=== PATIENT | female | born 1955 | race Caucasian/White ===

== ENCOUNTER 2020-05-18 17:12 | Inpatient (IN) | payer OTHER ==
[~2020-05-18] VITALS: Ht 167.6 cm; Wt 100.9 kg
[~2020-05-18 17:12] MED LIST: ACET325 PO; BENADRYL25 MG PO; CARI350 PO; CELE200 PO; CLOZ100 PO; CLOZAPINE PO; DIAZ2 PO; DIVA500ER PO; HYDACE5 PO; IBUP600 PO; NAPR500 PO; ONDA4ODT SL; Oxycodone-Apap1 EAC3 PO; Percocet 5-3251 EACH PO; Senna Concentr8.6 MG PO; Senna Laxative8.6 MG PO; Senna8.6 M1 PO; XARELTO20 MG PO
[2020-05-18 17:54] LABS: PCO2 Arterial 54.1 mmHg (35-45); PO2 Arterial 100 mmHg (80-100)
[2020-05-18 18:25] LABS: BASOPHILS ABSOLUTE AUTO 0.02 K/mm3 (0.00-0.23); BASOPHILS PERCENT AUTO 0 % (0-2); EOSINOPHILS ABSOLUTE AUTO 0.02 K/mm3 (0.00-0.68); EOSINOPHILS PERCENT AUTO 0 % (0-6); Hematocrit 40.1 % (33.0-51.0); Hemoglobin 12.2 g/dL (11.5-16.0); IMMATURE GRAN ABSOLUTE AUTO 0.03 K/mm3 (0.00-0.10); IMMATURE GRAN PERCENT AUTO 0 % (0-1); LYMPHOCYTES ABSOLUTE AUTO 0.83 K/mm3 (0.84-5.20); LYMPHOCYTES PERCENT AUTO 9 % (21-46); MONOCYTES ABSOLUTE AUTO 0.45 K/mm3 (0.16-1.47); MONOCYTES PERCENT AUTO 5 % (4-13); Mean Corpuscular HGB Conc 30.4 g/dL (31.5-36.5); Mean Corpuscular Volume 99 fL (80-100); Mean Platelet Volume 11.8 fL (9.1-12.4); NEUTROPHILS ABSOLUTE AUTO 8.24 K/mm3 (1.96-9.15); NEUTROPHILS PERCENT AUTO 86 % (41-73); Platelet Count 141 K/mm3 (150-400); RDW Coefficient Variation 12.7 % (11.7-14.2); RDW Standard Deviation 46.1 fL (35.1-46.3); Red Blood Cell Count 4.07 M/mm3 (3.80-5.20); White Blood Cell Count 9.59 K/mm3 (4.00-11.30)
[2020-05-18 18:49] LABS: Alanine Aminotransfer (ALT/SGP 13 U/L (12-78); Albumin, Blood 3.5 g/dL (3.4-5.0); Alk Phos 87 U/L (50-136); Anion Gap 7 mmol/L (6-16); Aspartate Aminotrans (AST/SGOT 22 U/L (12-37); Bilirubin, Total 0.4 mg/dL (0.1-1.0); Blood Urea Nitrogen 16 mg/dL (8-24); Bun/Creatinine Ratio 24.9 (12.0-20.0); CO2, Blood 31 mmol/L (21-32); Calcium, Blood 8.5 mg/dL (8.5-10.1); Chloride, Blood 103 mmol/L (98-108); Creatinine, Blood 0.64 mg/dL (0.40-1.00); Globulin, Blood 3.4 g/dL (2.2-4.0); Glomerular Filtration Rate >60 (60-); Glucose, Blood 115 mg/dL (70-99); Sodium, Blood 141 mmol/L (136-145); Total Protein, Blood 6.9 g/dL (6.4-8.2); Troponin I <0.015 ng/mL (0.000-0.040)
--- NOTE | 2020-05-19 04:10 | NUR ---
SHIFT SUMMARY ADMITTED FROM ER THIS SHIFT FOR BILATERAL PNEUMONIA/HYPOXIA. COVID POSITIVE. FULL CODE. PT WAS TITRATED UP TO 4 LPM O2 THIS SHIFT FOR DESATURATION. WE'VE BEEN USING THE BSC DUE TO CONFUSION. 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 REMDESIVIR, SOLUMEDROL ARE SCHEDULED. BLOOD CULTURES HAVE BEEN SENT. SHE IS CONFUSED, REMOVING HER OXYGEN AT TIMES.
[2020-05-19 05:45] LABS: BASOPHILS ABSOLUTE AUTO 0.02 K/mm3 (0.00-0.23); BASOPHILS PERCENT AUTO 0 % (0-2); EOSINOPHILS PERCENT AUTO 0 % (0-6); Hematocrit 38.1 % (33.0-51.0); Hemoglobin 11.6 g/dL (11.5-16.0); IMMATURE GRAN ABSOLUTE AUTO 0.06 K/mm3 (0.00-0.10); IMMATURE GRAN PERCENT AUTO 1 % (0-1); LYMPHOCYTES PERCENT AUTO 5 % (21-46); MONOCYTES ABSOLUTE AUTO 0.23 K/mm3 (0.16-1.47); MONOCYTES PERCENT AUTO 3 % (4-13); Mean Corpuscular HGB 29.7 pg (26.0-34.0); Mean Corpuscular HGB Conc 30.4 g/dL (31.5-36.5); Mean Corpuscular Volume 98 fL (80-100); Mean Platelet Volume 12.1 fL (9.1-12.4); NEUTROPHILS ABSOLUTE AUTO 8.11 K/mm3 (1.96-9.15); NEUTROPHILS PERCENT AUTO 92 % (41-73); Platelet Count 125 K/mm3 (150-400); RDW Coefficient Variation 12.6 % (11.7-14.2); RDW Standard Deviation 45.1 fL (35.1-46.3); White Blood Cell Count 8.82 K/mm3 (4.00-11.30)
[2020-05-19 06:03] LABS: Alanine Aminotransfer (ALT/SGP 13 U/L (12-78); Albumin, Blood 2.7 g/dL (3.4-5.0); Albumin/Globulin Ratio 0.8 (0.8-1.8); Alk Phos 81 U/L (50-136); Anion Gap 3 mmol/L (6-16); Aspartate Aminotrans (AST/SGOT 20 U/L (12-37); Bilirubin, Total 0.3 mg/dL (0.1-1.0); Blood Urea Nitrogen 16 mg/dL (8-24); Bun/Creatinine Ratio 29.7 (12.0-20.0); CO2, Blood 34 mmol/L (21-32); Calcium, Blood 8.3 mg/dL (8.5-10.1); Chloride, Blood 106 mmol/L (98-108); Creatinine, Blood 0.54 mg/dL (0.40-1.00); Globulin, Blood 3.4 g/dL (2.2-4.0); Glomerular Filtration Rate >60 (60-); Glucose, Blood 199 mg/dL (70-99); Potassium, Blood 4.6 mmol/L (3.5-5.5); Sodium, Blood 143 mmol/L (136-145); Total Protein, Blood 6.1 g/dL (6.4-8.2)
[2020-05-19 07:01] LABS: Adenovirus Not Detected (NOT DETECT); Bordetella pertussis Not Detected (NOT DETECT); Chlamydophila pneumoniae Not Detected (NOT DETECT); Coronavirus 229E Not Detected (NOT DETECT); Coronavirus HKU1 Not Detected (NOT DETECT); Coronavirus NL63 Not Detected (NOT DETECT); Coronavirus OC43 Not Detected (NOT DETECT); Human Metapneumovirus Not Detected (NOT DETECT); Human Rhinovirus/Enterovirus Not Detected (NOT DETECT); Influenza A/2009-H1 Not Detected (NOT DETECT); Influenza A/H1 Not Detected (NOT DETECT); Influenza A/H3 Not Detected (NOT DETECT); Influenza B Not Detected (NOT DETECT); Mycoplasma pneumoniae Not Detected (NOT DETECT); Parainfluenza Virus 1 Not Detected (NOT DETECT); Parainfluenza Virus 2 Not Detected (NOT DETECT); Parainfluenza Virus 3 Not Detected (NOT DETECT); Parainfluenza Virus 4 Not Detected (NOT DETECT); Respiratory Syncytial Virus Not Detected (NOT DETECT); SARS-Cov-2 (COVID-19), BioFire Detected (NOT DETECT)
--- NOTE | 2020-05-19 17:29 | NUR ---
PT RESTING IN BED AFTER MEDICATION ADMIN AND BATHROOM ASSISTANCE. PT VERY WEAK AND HAS MILD SOB WHEN AMBULATING WITH ONE ASSIST AND GATE BELT. DENIES CP. PT COUGH TREATED PER EMAR AND HELPING. LINE WNL AND FLUSHED. PT REMAINS PARANOID ABOUT HER CARE AND CAREGIVER INTENT, ALTHOUGH COOPERATIVE AND MED COMPLAINT. STAFF WILL CONT TO MONITOR.
--- NOTE | 2020-05-20 04:37 | NUR ---
DINING SERVICE SUPERVISOR SUMMARY NO ACUTE CHANGES THIS SHIFT. PT AAOX2-3, CAN BE VERY CONFUSED AT TIMES AND SPEAK NONSENSICALLY. VERY PARANOID AND CONSTANTLY ASKING WHAT YOU ARE DOING AND WHY. CAN MAKE MOST NEEDS KNOWN AND CAN ANSWER MOST YES/NO QUESTIONS EASILY. STANDBY ASSIST TO THE BSC. REMAINS ON 4L O2 VIA NC. PT OCCASIONALLY REMOVED O2 AND SATS DROP DOWN TO MID 80'S ON RA. VSS, WILL CONTINUE TO MONITOR.
--- NOTE | 2020-05-20 17:56 | NUR ---
SHIFT SUMMARY PT AxOx3-4 WITH INTERMITTENT CONFUSION/FORGETFULNESS. PT HAS HX OF SCHIZOPHRENIA AND VERBALIZES UNDERSTANDING THAT SHE IS CONFUSED AND/OR SEDATED SOMETIMES. SBA TO BSC. PT GAIT IMPROVEMENT NOTED T/O THE DAY. FREQUENT AND URGENT URINATION NOTED. PT STATES THIS IS NORMAL, AND HER DR TOLD HER IT JUST HAPPENS TO SOME WOMEN WHEN THEY GET OLDER. DENIES PAIN OR BURNING WITH URINATION. PT O2 WEANED FROM 4L TO 2LPM. C/O HACKING COUGH T/O DAY. MEDICATED PER EMAR WITH LITTLE RELIEF. PT UNABLE TO COUGH UP SPUTUM SAMPLE FOR LAB COLLECTION. IV DC'D DUE TO LEAKING. ATTEMPTING TO PLACE NEW IV BEFORE SHIFT CHANGE. VITALS REVIEWED. PT CURRENTLY RESTING IN BED WITH CALL LIGHT IN REACH.
--- NOTE | 2020-05-21 06:19 | NUR ---
MATHEMATICAL STATISTICIAN SUMMARY NO ACUTE CHANGES THIS SHIFT. PT AAOX2, MORE CONFUSED AT NIGHT IT SEEMS. PT UP TO BSC OFTEN WHILE AWAKE. REMAINS ON 2L O2 VIA NC AND HAS MAINTAINED O2 SATS THROUGH THE NIGHT. LUNGS REMAIN COARSE. VSS, WILL CONTINUE TO MONITOR.
--- NOTE | 2020-05-21 16:56 | NUR ---
SHIFT SUMMARY PT AxOx3-4 WITH INTERMITTENT CONFUSION. PT IS ABLE TO MAKE NEEDS KNOWN. USES CALL LIGHT FREQUENTLY, YET APPROPRIATELY. GENERAL STRENGTH IMPROVEMENT NOTED COMPARED TO YESTERDAY. PT IS GETTING UP TO USE BSC WITH SBA. ABLE TO MANAGE O2 & BIOX LINES WITHOUT DIFFICULTY. O2 DECREASED TO 1.5L THIS AM WITH SATS AT 92%. PT/OT ORDERED FOR EVAL. OT WORKED WITH PATIENT TODAY. TELEMETRY DC'D. PER SPRAY BOOTH OPERATOR, TELE READS NSR @95 PRIOR TO DC. PT DID NOT NEED/REQUEST ANY VALIUM FOR ANXIETY OR COUGH MEDS TODAY. PT STATES SHE IS FEELING BETTER EACH DAY. PER DR GOLDEN, PLAN IS TO FINISH DAY 5 OF REMDESIVIR AND SWITCH TO PO STEROIDS TOMORROW, THEN WILL DISCUSS DC PLANS. PT VITALS REVIEWED. PT CURRENTLY RESTING IN BED WITH CALL LIGHT IN REACH. DENIES ANY NEEDS AT THIS TIME.
--- NOTE | 2020-05-21 23:37 | NUR ---
CONT BIOX/O2 NEEDS AT 2315 PTS CONT BIOX WAS ALARMING, SPO2 @86/87% ON 1.5L O2. PT IS SOUND ASLEEP & DOES NOT WAKE TO ALARMS OR NURSE IN RM. CHANGED FINGER BIOX STICKER, & INCREASED O2 TO 4L, SPO2 @90%. PT RESTING COMFORTABLY & IN NO APPERENT DISTRESS. WILL MONITOR SPO2 & TITRATE O2 PRN.
--- NOTE | 2020-05-22 01:32 | NUR ---
INCREASED O2 NEEDS CONT PULSE ALARMING @0055, WENT INTO RM & SPO2 @84% ON 4L, INCREASED O2 TO 6L, PT CONT BIOX STILL 80-85%. RR 28-30, HAS LABOURED BREATHING c ACCESSSORY MUSCLE USE, LUNGS DIM c FINE EXP WHEEZES IN UPPER LOBES & DIM BASES, DRY/WET NONPRODUCTIVE WEAK COUGH. CHANGED PULSE OX STICKER TO TOE & CHANGED PT TO OXIMIZER ON 9L O2, SPO2 90-92%. INFORMED RT FELIPE Ba OF PT INCREASED O2 NEEDS. RT CAME TO RM & GAVE PT BREATHING TX, PLACED ON HIGH FLOW NC @7L c HUMIDIFIED AIR. THIS NURSE & NORMA Ba ASSISTED PT TO LYING PRONE. AFTER REPOSITIONING PT RT WAS ABLE TO TITRATE O2 DOWN 5L c SPO2 @90-92%. WILL CONT TO MONITOR PT & TITRATE O2 PRN. HIGH FLOW NC.
--- NOTE | 2020-05-22 04:14 | NUR ---
SHIFT SUMMARY AOX3, FORGETFUL/CONFUSED @TIMES. FLIGHT OF IDEAS & NONSENSICAL SPEECH. HX SCHIZOPHRENIA. SPO2 DROPPED TO 80-86% WHILE PT SOUND ASLEEP & ON 4L O2, RR INCREASED & PT REPORTED FEELING SOB WHEN WOKEN UP @THIS TIME WELL, READ PREVIOUS NOTES. PT CURRENTLY RESTING COMFORTABLY LYING PRONE, ON 4L HUMIDIFIED O2 c SPO2 90-92%. REST OF VITALS STABLE. LUNGS SOUND DIM c FINE EXP WHEEZES IN UPPER LOBES. HAS NONPRODUCTIVE WEAK COUGH. REPORTED PAIN IN RIBS/LUNGS c COUGHING, GAVE TYLENOL & TESSELON PERELS PT STATED RELIEF FROM PAIN. WHILE AWAKE PT UP TO BSC FREQUENTLY TO "URINATE" SOMETIMES PT UNABLE TO VOID. DENIES N/V. CALL LIGHT IN REACH & PT ABLE TO MAKE NEEDS KNOWN. WILL MONITOR UNTIL DAY NURSE ASSUMES CARE.
--- NOTE | 2020-05-22 16:20 | NUR ---
SHIFT SUMMARY PT CONFUSED AT TIMES; HAS FLIGHT OF IDEAS AT TIMES. PT C/0 COUGH AND RIBS PAIN- MEDICATED PER EMAR. ALSO MEDICATED THE PT FOR ANXIETY THIS AFTERNOON. PT DESAT TO 80S THIS AM; CALLED THE RT AND INCREASED THE O2 TO 9LPM ; PT MAINTAINED SATS ABOVE 90S. SLOWLY WEENED THE PT O2 PER . PT IS NOW ON 4-5 L DURING RESTING. MAINTAINING LOW 90S AND PT ON PRONE POSITION . PT WORKED WITH PT TODAY. BED IS IN THE LOWEST POSITION AND CALL LIGHT WITHIN REACH.
--- NOTE | 2020-05-23 02:38 | NUR ---
REPORT GIVEN TO HUY BARRY
--- NOTE | 2020-05-23 04:48 | NUR ---
KEYCASE ASSEMBLER SUMMARY PT A&OX4, ABLE TO MAKE NEEDS KNOWN, FORGETFUL AT TIMES. PATIENT PLEASANT AND COOPERATIVE TO CARE. PT MEDICATED FOR PAIN PER EMAR, NO C/O CP, SOB, OR N&V. PT ON 4LPM VIA NC, SPO2 90-95%. OCCASSIONAL NON PRODUCTIVE COUGH NOTED. PT CALM AND RESTED IN BED T/O SHIFT. SBA TO BSC. BED AT LOWEST POSITION. CALL LIGHT WITHIN REACH.
--- NOTE | 2020-05-23 16:21 | NUR ---
SHIFT SUMMARY PT IS AOX4; CONFUSED AT TIMES. PT WORKED WITH RT THIS AM- SEE RT NOTE EVAL. PT IS ON 3-4 L OF O2; SATS ABOVE LOW 90S. PT DYSPNEA ON EXERTION. PT USES BSC; VSS. NO OTHER ACUTE CHANGES THIS SHIFT. BED IS IN THE LOWEST POSITION AND CALL LIGHT WITHIN REACH.
--- NOTE | 2020-05-24 04:10 | NUR ---
COUNT ROOM CLERK SUMMARY PT A&OX4, ABLE TO MAKE NEEDS KNOWN. PLEASANT AND COOPERATIVE TO CARE. NO C/O PAIN OR ANY DISCOMFORT. NO C/O CP OR N&V. SOB WITH EXERTION NOTED. PT ON 3LPM O2 VIA NC, SPO2 90-93%, OCCASSIONAL NON-PRODUCTIVE COUGH NOTED. PT CALM AND RESTED IN BED T/O SHIFT. 1P SBA TO BSC. BED AT LOWEST POSITION. CALL LIGHT WITHIN REACH.
--- NOTE | 2020-05-24 09:41 | NUR ---
THE NURSE IS TAKING OVER CARE FORN Pt IN 307.
[2020-05-24] MEDS ORDERED: BENZ100A PO (11:15)
[2020-05-24] MEDS ORDERED: DEXA2 PO (11:17)
[2020-05-24] MEDS ORDERED: Q-Tussin100 MG/5 M PO (11:27)
--- NOTE | 2020-05-24 17:10 | NUR ---
PT DISCHARGED TO HOME VIA WC TO [facility] AT 1700. IV DCD. PT EDUCATED ABOUT NEW MEDICATIONS AND FAXED TO [facility]. IV DCD. PT ALSO GIVEN PACKET INFORMATIONS ABOUT COVID. EDUCATED ABOUT THE PREVENTION OF SPREAD. PT GIVEN THE HOME O2 AT 3L [facility]. PT EDUCATED ABOUT CONSERVING ENERGY. PT AWARE TO CALL PCP FOR 1-2 WEEKS APPOINTMENT. PT ANXIOUS AND EDUCATED ABOUT DEEP BREATHING EXERCISES DURING PANIC ATTACK. PT GIVEN ALL MORNING MEDS AND ANXIETY MEDICATIONS THIS MORNING.
== END 2020-05-24 16:47 | disposition home health service (06) | DRG 177 ==
LOC: ER 17:12 → MEDS 19:57 → ENPENDDIS 05-24 12:36 → MEDS 05-24 16:47
PROVIDERS: Physician Assistant; ADMIT Internal Medicine
PROC: XW033E5 Introduction of Remdesivir Anti-infective into Peripheral Vein, Percutaneous Approach, New Technology Group 5 (ICD-10-PCS; principal; 2020-05-18)
PROC: 8E0ZXY6 Isolation (ICD-10-PCS; 2020-05-18)
DX: U07.1 COVID-19 (principal); J12.82 Pneumonia due to coronavirus disease 2019; J96.01 Acute respiratory failure with hypoxia; F20.0 Paranoid schizophrenia; K21.9 Gastro-esophageal reflux disease without esophagitis; E78.5 Hyperlipidemia, unspecified; Z87.11 Personal history of peptic ulcer disease; Z87.891 Personal history of nicotine dependence; Z86.718 Personal history of other venous thrombosis and embolism
CPT/HCPCS: 0202U; 36415; 36600; 71046; 80053; 82803; 83605; 83880; 84145; 84484; 85025; 87040; 93005; 93010; 94640; 94761; 94762; 97116; 97162; 97165; 97530; 99285-25; A9270; J1100; J1650; J2930; J7050

== ENCOUNTER 2020-05-29 16:03 | Inpatient (IN) | payer OTHER ==
[~2020-05-29] VITALS: Ht 175.3 cm; Wt 90.7 kg
[~2020-05-29 16:03] MED LIST changes: +BENZ100A PO; +DEXA2 PO; +Q-Tussin100 MG/5 M PO
[2020-05-29 16:57] LABS: BASOPHILS ABSOLUTE AUTO 0.02 K/mm3 (0.00-0.23); BASOPHILS PERCENT AUTO 0 % (0-2); EOSINOPHILS PERCENT AUTO 0 % (0-6); IMMATURE GRAN ABSOLUTE AUTO 0.16 K/mm3 (0.00-0.10); IMMATURE GRAN PERCENT AUTO 1 % (0-1); LYMPHOCYTES ABSOLUTE AUTO 1.51 K/mm3 (0.84-5.20); LYMPHOCYTES PERCENT AUTO 9 % (21-46); MONOCYTES ABSOLUTE AUTO 1.63 K/mm3 (0.16-1.47); MONOCYTES PERCENT AUTO 9 % (4-13); Mean Corpuscular HGB 29.7 pg (26.0-34.0); Mean Corpuscular HGB Conc 31.1 g/dL (31.5-36.5); Mean Corpuscular Volume 96 fL (80-100); Mean Platelet Volume 12.4 fL (9.1-12.4); NEUTROPHILS ABSOLUTE AUTO 14.03 K/mm3 (1.96-9.15); NEUTROPHILS PERCENT AUTO 81 % (41-73); Platelet Count 224 K/mm3 (150-400); RDW Coefficient Variation 12.9 % (11.7-14.2); RDW Standard Deviation 45.9 fL (35.1-46.3); Red Blood Cell Count 4.71 M/mm3 (3.80-5.20); White Blood Cell Count 17.35 K/mm3 (4.00-11.30)
[2020-05-29 17:11] LABS: Alanine Aminotransfer (ALT/SGP 27 U/L (12-78); Albumin, Blood 3.5 g/dL (3.4-5.0); Albumin/Globulin Ratio 1.1 (0.8-1.8); Alk Phos 66 U/L (50-136); Anion Gap 4 mmol/L (6-16); Aspartate Aminotrans (AST/SGOT 41 U/L (12-37); Bilirubin, Total 0.8 mg/dL (0.1-1.0); Blood Urea Nitrogen 47 mg/dL (8-24); Bun/Creatinine Ratio 68.3 (12.0-20.0); CO2, Blood 30 mmol/L (21-32); Chloride, Blood 112 mmol/L (98-108); Creatinine, Blood 0.69 mg/dL (0.40-1.00); Ethanol (Alcohol), Blood, Med <3 mg/dL; Globulin, Blood 3.3 g/dL (2.2-4.0); Glomerular Filtration Rate >60 (60-); Glucose, Blood 132 mg/dL (70-99); Potassium, Blood 3.9 mmol/L (3.5-5.5); Salicylate <1.7 mg/dL (2.8-20.0); Sodium, Blood 146 mmol/L (136-145); Total Protein, Blood 6.8 g/dL (6.4-8.2)
[2020-05-29 17:13] LABS: Acetaminophen, Random <2.0 ug/mL (10.0-30.0)
[2020-05-29 17:52] LABS: Creatine Kinase MB 7.8 ng/mL (0.0-3.6); Creatine Kinase MB Index 0.9 (0.0-4.0)
[2020-05-29 18:01] LABS: Source, Urine Clean Catch
[2020-05-29 18:06] LABS: Appearance, Urine Clear (Clear); Bilirubin, Urine Neg (Neg); Blood, Urine 1+ (Neg); Color, Urine Yellow (P-Yellow); Glucose Qualitative, Urine Neg (Neg); Ketones, Urine 3+ (Neg); Leukocyte Esterase, Urine 2+ (Neg); Nitrite, Urine Neg (Neg); Protein, Urine 1+ (Neg); Urobilinogen, Urine NORM (Normal)
[2020-05-29 18:17] LABS: U Amphetamine Screen Not Detected; U Barbituate Screen Not Detected; U Benzodiazapine Screen DETECTED; U Buprenorphine Screen Not Detected; U Cannabinoids Screen Not Detected; U Cocaine Screen Not Detected; U Methadone Screen Not Detected; U Methamphetamine Screen Not Detected; U Opiates Screen Not Detected; U Oxycodone Screen Not Detected; U Phencyclidine Screen Not Detected; U Propoxyphene Screen Not Detected
[2020-05-29 18:25] LABS: Red Blood Cells, Urine 0-2 /hpf (0-2)
[2020-05-29 18:26] LABS: Bacteria Mod /hpf; Squamous Epithelial Cells Not Seen /hpf (Few); Triple Phosphate Crystals Few /hpf
[2020-05-29 19:19] LABS: Valproic Acid <3.0 ug/mL (50.0-100.0)
--- NOTE | 2020-05-29 23:56 | NUR ---
report received from HUY Badillo from .
--- NOTE | 2020-05-30 03:45 | NUR ---
Patient alert and cooperative with care. Arrived on floor alert and oriented times two. unaware of circumstances that brought her to hospital the hospital.This RN just told her her son Jarocho came to see her, and she was pretty sick, so he called 911. Patient has been pleasant and cooperative with care since arrival. Jyoti has had a few witness episodes when staff have been walking into room of auditoroy and visual hallucinations. Lung sounds dim in bases but clear. upper airway occasionally loose sounding with SUPPOSITORY MOLDING MACHINE OPERATOR cough that clears area. Patient unsure of Flu shot status, so immunization held for how. Please have son Jarocho Turk at [phone] present when patient informed of spouses .
[2020-05-30 05:26] LABS: BASOPHILS ABSOLUTE AUTO 0.01 K/mm3 (0.00-0.23); BASOPHILS PERCENT AUTO 0 % (0-2); EOSINOPHILS ABSOLUTE AUTO 0.05 K/mm3 (0.00-0.68); EOSINOPHILS PERCENT AUTO 0 % (0-6); Hematocrit 37.4 % (33.0-51.0); Hemoglobin 11.3 g/dL (11.5-16.0); IMMATURE GRAN ABSOLUTE AUTO 0.08 K/mm3 (0.00-0.10); IMMATURE GRAN PERCENT AUTO 1 % (0-1); LYMPHOCYTES ABSOLUTE AUTO 2.18 K/mm3 (0.84-5.20); LYMPHOCYTES PERCENT AUTO 18 % (21-46); MONOCYTES PERCENT AUTO 9 % (4-13); Mean Corpuscular HGB 29.6 pg (26.0-34.0); Mean Corpuscular HGB Conc 30.2 g/dL (31.5-36.5); Mean Corpuscular Volume 98 fL (80-100); Mean Platelet Volume 12.2 fL (9.1-12.4); NEUTROPHILS ABSOLUTE AUTO 8.82 K/mm3 (1.96-9.15); NEUTROPHILS PERCENT AUTO 72 % (41-73); Platelet Count 175 K/mm3 (150-400); RDW Coefficient Variation 13.2 % (11.7-14.2); RDW Standard Deviation 46.9 fL (35.1-46.3); Red Blood Cell Count 3.82 M/mm3 (3.80-5.20); White Blood Cell Count 12.24 K/mm3 (4.00-11.30)
[2020-05-30 05:45] LABS: Anion Gap 5 mmol/L (6-16); Blood Urea Nitrogen 40 mg/dL (8-24); Bun/Creatinine Ratio 73.7 (12.0-20.0); CO2, Blood 28 mmol/L (21-32); Calcium, Blood 7.6 mg/dL (8.5-10.1); Chloride, Blood 114 mmol/L (98-108); Creatinine, Blood 0.54 mg/dL (0.40-1.00); Glomerular Filtration Rate >60 (60-); Glucose, Blood 95 mg/dL (70-99); Potassium, Blood 3.6 mmol/L (3.5-5.5); Sodium, Blood 147 mmol/L (136-145)
--- NOTE | 2020-05-30 17:55 | NUR ---
PATIENT CONTINUES TO BE VERY CONFUSED AND DELUSIONAL THIS SHIFT. HAS BECOME MORE ALERT THE DAY GOES ON, BUT CONVERSATION IS PARANOID AND NONSENSICAL. PT ORDERED BECAUSE PATIENT STATES THAT SHE CANNOT WALK AND USUALLY CRAWLS AROUND HER HOME. LAST ADMISSION 01/22/21, PATIENT WAS INDEPENDENT WITH ADL'S. SPOKE WITH SON MIRA AND SISTER LENKA TODAY AND UPDATED THEM ON PATIENT CONDITION. PSYCH CONSULT FAXED TO ED. PATIENT HAS BEEN VERY EMOTIONALLY LABILE TODAY, LAUGHING ONE MINUTE AND CRYING THE NEXT. TALKS ABOUT LEONARD HER S/O THAT WAS FOUND TO BE BY PARAMEDICS WHEN THE PATIENT WAS PICKED UP. PATIENT DOES NOT SEEM TO REALIZE HE HAS PASSED. VERY MISTRUSTFUL OF STAFF THIS EVENING AND BELIEVES THAT SOME OF US ARE EVIL AND HERE TO HARM HER. PATIENT REFUSES TO TAKE HER PRN VALIUM TODAY. PULLED HER IV OUT THIS EVENING AND REFUSES TO HAVE ONE RESTRATED. PATIENT IS EATING AND DRINKING WELL. INCONTINENT OF URINE AND STOOL TODAY. HAS NOT ATTEMPTED TO GET OOB UNASSISTED. FALL PRECAUTIONS IN PLACE.
--- NOTE | 2020-05-30 18:00 | NUR ---
Spiritual care note: Per RN, pt has been having numerous delusions today, and advised I not visit. I asked to be notified if family arrived and could use support.
--- NOTE | 2020-05-31 00:31 | NUR ---
Over first part of shift, patient has refused assessment, initially refused all HS meds, Spit out 1st bite of pudding with crushed Ativan in it and refused IV restart. Zyprexa was drawn up in anticipation of needing to administer it IM to try and get the patient to allow our care. At around 1130 PM patient agreed to take po Clozapine, then spit Depakote back at this RN. Zyprexa was held for the moment to monitor effects of Clozapine. Patient is having delusions about rats in room, and thinking staff is trying to hurt her. Talking in disjointed fashion about her family, mormonism, and her S/O Artem. Still complete refusal to allow IV start touch her.
--- NOTE | 2020-05-31 03:56 | NUR ---
Patient refused most care including most meds and assessment. IV Rocephin changed to PO Levaquin. Order to leave IV out. Patient spit out Depakote sprinkles, but agreed to take Clozapine and finally cesario finally fell asleep. Patient havingvery paranoid hallucinations that staff and family trying to hurt her. Continues to be very distrustful of touch of any kind. Urine much less foul odor
--- NOTE | 2020-05-31 13:58 | NUR ---
PATIENT GRABBING AT STAFF AND BECOMING AGGRESSIVE. STATED THAT SHE WANTED TO PULL HER TEETH OUT AND GRABBED HER FRONT TOOTH WITH FORCE AND ATTEMPTED TO PULL IT. CHARGE NURSE DONNIE AT BEDSIDE TO ASSIST. PATIENT WAS REDIRECTED AND WENT BACK TO STARING TO THE RIGHT AND NOT TALKING. DR. FENTON CONTACTED AND ZYPREXA IM OR ZYDIS PO ORDERED TO TREAT AGITATION. RAGINI WITH PALLIATIVE CARE CAME IN TO ASSESS PATIENT AND WAS CURIOUS ABOUT HER DEPAKOTE LEVELS AND WILL CHECK WITH PHARMACY ABOUT DOSAGE TO GET HER TO A THERAPEUTIC LEVEL. PLAN IS TO TRANSFER PATIENT TO THE SCU SO THAT SHE CAN BE REMOTELY MONITORED FOR HER SAFETY.
--- NOTE | 2020-05-31 16:25 | NUR ---
PATIENT TRANSFERRED TO ROOM 348, REPORT GIVEN TO HUY OROPEZA. SPOKE WITH GERARDO KAUR, INFECTION CONTROL NURSE AND SHE SAID THAT IT WAS OK TO USE DROPLET/CONTACT PRECAUTIONS INSTEAD OF ENHANCED PRECAUTIONS FOR COVID BECAUSE PATIENT IS NO LONGER HAVING COVID SYMPTOMS, GETTING RT TREATMENTS, USING O2 OR ON CPAP/BIPAP.
--- NOTE | 2020-05-31 16:47 | NUR ---
PATIENT A/O TO SELF ONLY. ON OCCASIONAL WILL MENTION FAMILY TODAY. SPOKE WITH SISTER LENKA AND SON MIRA OVER THE PHONE AND UPDATED THEM ON PATIENT CONDITION. PATIENT DID TAKE MEDICATIONS WHOLE WITH WATER THIS SHIFT. PO INTAKE WAS DECREASED TODAY COMPARED TO YESTERDAY. PATIENT NEEDS ENCOURAGEMENT AND ASSISTANCE WITH MEALS. TYLENOL GIVEN THIS AFTERNOON FOR A HEADACHE. ZYPREXA ORDERED PRN AND PO DOSE GIVEN X1 FOR AGITATION. PATIENT CONTINUES TO HAVE HALLUCINATIONS AND DELUSIONS. SPOKE LESS THIS SHIFT AND OFTEN STARED OFF TO THE RIGHT. SPEECH CONTINUES TO BE DISORGANIZED AND NONSENSICAL. WORKED WITH PT TODAY AND WAS ABLE TO TRANSFER TO BS WITH 2 ASSIST FOR SAFETY. PATIENT IS STRONG WITH TRANSFERS, BUT DOES NOT ALWAYS FOLLOW COMMANDS.
--- NOTE | 2020-05-31 18:07 | NUR ---
Shift Summary A/O to self. Received report from Kiki SON, patient transferred from [facility] to [facility] for closer observation, arrived approx. 1605. Patient sitting in bed calmly. No signs of impulsivity or agitation since patient arrived. Patient did receive a dose of Zyprexa prior to transfer. Patient talks minimally, mostly is quiet. No shortness of breath or coughing noted. On RA. WCTM.
--- NOTE | 2020-05-31 19:39 | NUR ---
VERIFIED VIDEO MONITORING VERIFIED VIDEO MONITORING IS IN PLACE
--- NOTE | 2020-05-31 22:48 | NUR ---
PT STATUS PT VERBALLY AGREED TO ACCEPT HER SCHEDULED MEDICATIONS, BUT THEN SPIT THEM OUT ONTO HER CHEST. SHE DOES NOT RESPOND APPROPRIATELY TO INSTRUCTIONS AND CANNOT BE REDIRECTED. SHE HAS NOT TRIED TO EXIT THE BED THUS FAR THIS SHIFT
--- NOTE | 2020-06-01 04:45 | NUR ---
SHIFT SUMMARY ADMITTED FOR UTI. CONTACT/DROPLET PRECAUTIONS FOR COVID POSITIVE. VIDEO CAMERA MONITORING. SHE DID SPIT HER MEDICATIONS OUT IMMEDIATELY THIS SHIFT. SHE WAS NOT RESPONSIVE TO INSTRUCTION. NOT REDIRECTABLE. NONSENSICAL SPEECH. SHE DID NOT ATTEMPT TO EXIT BED. SHE IS A 2 MAX ASSIST TO CHANGE.
[2020-06-01 05:43] LABS: Anion Gap 6 mmol/L (6-16); Blood Urea Nitrogen 20 mg/dL (8-24); Bun/Creatinine Ratio 36.6 (12.0-20.0); CO2, Blood 29 mmol/L (21-32); CPK Creatine Kinase 103 U/L (26-193); Calcium, Blood 7.9 mg/dL (8.5-10.1); Chloride, Blood 112 mmol/L (98-108); Creatinine, Blood 0.55 mg/dL (0.40-1.00); Glomerular Filtration Rate >60 (60-); Glucose, Blood 107 mg/dL (70-99); Potassium, Blood 3.8 mmol/L (3.5-5.5); Sodium, Blood 147 mmol/L (136-145)
--- NOTE | 2020-06-01 18:18 | NUR ---
PT AOX1 AND HAS BEEN HALLUCINATING ALL DAY. SHE WILL AT TIMES JUST STARE OR SHE TALKS A LOT OF NONSENSE. SOMETIMES SHE WILL TALK WITH CARE GIVERS. PT TOOK SOME OF HER ORAL MEDS CRUSHED IN PUDDING,BUT SOME LEAKED OUT HER MOUTH. PT REALLY DOES NOT WANT TO TAKE THINGS ORALLY FROM NURSE AT THIS TIME. PT TALKS A LOT TO HERSELF AND HAS JUST NOW DECIDED TO THROW SOME FOOD AND AID HAD TO REDIRECT. WILL CONTINUE TO MONITOR.
--- NOTE | 2020-06-02 05:52 | NUR ---
warehouse worker 2nd shift summary pt was agitated at beginning of warehouse worker 2nd shift. pt was shaking bed rails, cursing and hallucinating. pt scratched staff member on forearm. pt does not listen to directions. nurse was able to give some medications to pt but pt also spit some back out. pt refused rest of meds and non-compliant with care. security by bedside as backup during care. pt slept most of the night. bed alarm in place, call light within reach.
--- NOTE | 2020-06-02 17:20 | NUR ---
PT AOXO VERY CONFUSED. HER HALLUCINATIONS CONTINUE AND PT CAN'T KEEP A CONVERSATION THAT MAKES SENSE. PT CALLS OUT AT TIMES AND WILL THROUGH HER FOOD AT TIMES. PT CN SOUND PARANOID AND THEN PLEASANT AND HAPPY. PT GOT OUT OF BED ON HER OWN START OF SHIFT, BUT THEN WILL HAVE TO HAVE TWO PEOPLE CHANGE HER LATTER. CALL LIGHT IS WITHIN REACH WILL CONTINUE TO MONITOR.
--- NOTE | 2020-06-03 02:04 | NUR ---
06/03/20 0130 PT ANXIOUS WHEN STAFF APPROACH TO DO CARE. REASSURED AND WAS INCONTINENT OF URINE. ATTENDS BRIEF CHANGED AND PT REPOSITIONED TO SIDE WITH PILLOWS. BED ALARM ON. CONTINUAL VIDEO IN PROGRESS. PT YELLING "RAPE" WHEN STAFF DOES ALLEN-CARE AND BRIEF CHANGE.
--- NOTE | 2020-06-03 05:02 | NUR ---
06/03/20 0500 AWAKE AND WATCHING TV. INFORMED HER THAT WE WERE GOING TO CHANGE HER "UNDERWEAR" BECAUSE IT WAS WET. SHE AGREED TO THE CHANGED AND WAS CALM AND HELPFUL. STILL HAVING OCC. HALLUCINATIONS "SEEING YOU FLYING LIKE AN CAN", SHE SAID LOOKING AT THE RN. WATER GIVEN. ENCOURAGED HER TO GET SOME SLEEP AND RE-ORIENTED HER TO SURROUNDINGS AND TIME OF DAY. ISOLATION MAINTAINED.
--- NOTE | 2020-06-03 16:58 | NUR ---
PT AOX0 AND VERY PHYCOTIC IN BEHAVIOR AND STATES MANY RANDOM THINGS OR DOES NOT TALK AT ALL. FIRST PART OF SHIFT SHE JUST USED HAND GESTURES. CAMERA IS MONITORING. PT SLEEP MIDDLE OF THE DAY. CALL LIGHT IS WITHIN REACH WILL CONTINUE TO MONITOR.
--- NOTE | 2020-06-04 04:54 | NUR ---
SOFTWARE CLERK SUMMARY NO ACUTE CHANGES THIS SHIFT. PT AAOX1, MOSTLY SPEAKS NONSENSICALLY. PT HAS BEEN MOSTLY PLEASANT TONIGHT, TOOK SCHEDULED MEDS WITH NO ISSUES ASIDE FROM IV MEDS. PT PARANOID ABOUT PEOPLE USING HER IV. PT DOES GET AGITATED WHEN HER ATTENDS NEED CHANGED AND WILL OFTEN SCREAM OUT. PT IS INCONTINENT AND ATTENDS NEED CHANGED REGULARLY TO AVOID SKIN BREAKDOWN. NO S/S OF RESPIRATORY DISTRESS NOTED, REMAINS ON RA. VSS, WILL CONTINUE TO MONITOR.
[2020-06-04 05:55] LABS: Anion Gap 3 mmol/L (6-16); Blood Urea Nitrogen 19 mg/dL (8-24); Bun/Creatinine Ratio 38.4 (12.0-20.0); CO2, Blood 30 mmol/L (21-32); Calcium, Blood 8.3 mg/dL (8.5-10.1); Chloride, Blood 110 mmol/L (98-108); Glomerular Filtration Rate >60 (60-); Glucose, Blood 114 mg/dL (70-99); Potassium, Blood 3.8 mmol/L (3.5-5.5); Sodium, Blood 143 mmol/L (136-145)
--- NOTE | 2020-06-04 18:51 | NUR ---
PATIENT IS ALERT AND ORIENTED TO FAMILY AND FOLLOWING DIRECTIONS. PATIENT HAS BEEN COOPERATIVE WITH CARE TODAY. ATTENDS IN PLACE. SHE IS INCONTINENT OF BOWEL AND BLADDER. DR. FENTON RECOMMENDS AN INPATIENT PSYCH FACILITY. THE PATIENT SPOKE WITH FAMILY OVER THE PHONE TODAY. WILL CONTINUE TO MONITOR
--- NOTE | 2020-06-05 05:57 | NUR ---
SHIFT SUMMARY NO ACUTE CHANGES TO REPORT THIS SHIFT. PT HAS BEEN COOPERATIVE WITH CARE. A/O TO SELF, DOES NOT ANSWER ANY OF MY QUESTIONS APPROPRIATELY AND TALKS NONSENSICALLY. PT SLEEPS OFF AND ON T/O THE NIGHT. ASSESSMENT REMAINS UNCHANGED. BED IN LOWEST POSITION, CALL LIGHT WITHIN REACH.
--- NOTE | 2020-06-05 09:53 | NUR ---
Attepmted to meet with Jyoti last evening. She was quite confused and unable to engage in meaningful conversation. I will remain available if she becomes lucid and begins to process spouse's .
--- NOTE | 2020-06-05 19:28 | NUR ---
SHIFT SUMMARY- PT ALERT AND ORIENTED TO SELF, MOSTLY NONSENSICAL SPEACH WITH PARANOID DELUSIONS. PT DOES NOT PERFORM ANY SELF CARE AT THIS TIME AND SHE FREQUENTLY REFUSES ADIMANTLY TO ALLOW STAFF TO DO SO. PT REFUSED THIS EVENING WELL BUT WAS WET AND NEEDED CHANGED. TWO STAFF ASSISTED HER WITH A FULL BED CHANGE. PT FOUGHT TO KEEP HER WET CLOTHES ON. STAFF DISTRACTED AND ASSISTED WITH THE CANGE. PT SPEACH REMAINED NONSENSICAL T/O THE CHANGE. PT IS A 1PA TO THE BSC HOWEVER REQUIRES A SECOND PERSON FOR DISTRACTION WHILE SHE IS ASSISTED BY THE FIRST. PLAN IS FOR PT TO DC TO IN PT PSYCH FACILITY WHEN SHE IS READY. PARTIAL BATH PERFORMED WITH THE LINNEN, ATTENDS AND GOWN CHANGE JUST PRIOR TO SHIFT CHANGE.
--- NOTE | 2020-06-06 07:25 | NUR ---
SHIFT SUMMARY PATIENT VERY CONFUSED OVERNIGHT. WAS PLEASANT AN COOPORATIVE. HAD NO COMPLAINTS OF PAIN OR SHORTNESS OF BREATH. SLEPT FAIRLY WELL OVERNIGHT. BED IN LOWEST POSITION WITH WHEELS LOCKED. CALL LIGHT WITHIN REACH. REPORT GIVEN TO ONCOMING RN.
[2020-06-06 09:04] LABS: BASOPHILS ABSOLUTE AUTO 0.02 K/mm3 (0.00-0.23); BASOPHILS PERCENT AUTO 0 % (0-2); EOSINOPHILS ABSOLUTE AUTO 0.15 K/mm3 (0.00-0.68); EOSINOPHILS PERCENT AUTO 2 % (0-6); Hematocrit 43.8 % (33.0-51.0); Hemoglobin 13.6 g/dL (11.5-16.0); IMMATURE GRAN ABSOLUTE AUTO 0.05 K/mm3 (0.00-0.10); IMMATURE GRAN PERCENT AUTO 1 % (0-1); LYMPHOCYTES ABSOLUTE AUTO 1.21 K/mm3 (0.84-5.20); LYMPHOCYTES PERCENT AUTO 20 % (21-46); MONOCYTES ABSOLUTE AUTO 0.54 K/mm3 (0.16-1.47); MONOCYTES PERCENT AUTO 9 % (4-13); Mean Corpuscular HGB 29.9 pg (26.0-34.0); Mean Corpuscular HGB Conc 31.1 g/dL (31.5-36.5); Mean Corpuscular Volume 96 fL (80-100); Mean Platelet Volume 12.5 fL (9.1-12.4); NEUTROPHILS ABSOLUTE AUTO 4.21 K/mm3 (1.96-9.15); NEUTROPHILS PERCENT AUTO 68 % (41-73); Platelet Count 153 K/mm3 (150-400); RDW Standard Deviation 45.6 fL (35.1-46.3); Red Blood Cell Count 4.55 M/mm3 (3.80-5.20); White Blood Cell Count 6.18 K/mm3 (4.00-11.30)
--- NOTE | 2020-06-06 13:31 | NUR ---
PT HAS BECOME MORE MOBILE, SHE IS STILL VERY UNSTEADY ON HER FEET. PT IS ABLE TO RESPOND TO SOME QUESTIONS APPROPRIATELY HOWEVER BELIEVES THE NURSING STAFF ARE HER FAMILY MEMBERS. PT BELIEVES SHE IS AND HAVING A BABY. SHE ATE BREAKFAST LATE AND SMASHED THE BLUBERRIES IN HER HANDS THEN BELIEVED SHE WAS BLEEDING OUT THROUGH HER IV THAT SHE PULLED, SHE DID NOT HAVE AN IV. PT HAS BEEN RESISTENT TO CARE. STAFF HAVE MANAGED TO CHANGE ATTENDS HOWEVER THE PT IS VERY RESISTENT TO PERSONAL CARE. PT HAS BEGUN TO GET OUT OF BED BUT IS UNSTEADY. PT IS ON CAMERA AND PER THE CAMERA TECH SHE HAS NEARLY FALLEN TWO OR THREE TIMES. WE ARE ATTEMPTING MORE FREQUENT ROUNDING BUT THE PT IS IN ISOLATION FOR COVID, SO THE PROCESS OF PREPARING TO ENTER THE ROOM DELAYS STAFF IN AN URGENT SITUATION. WILL CONTINUE TO TRY TO ENSURE PT SAFETY WITH THE CURRENT METHODS. PLAYERS CLUB REPRESENTATIVE NOTIFIED OF THE ISSUE.
--- NOTE | 2020-06-06 14:28 | NUR ---
PT HAS BEEN MORE MOBILE GETTING UP IN THE ROOM AND PLACING HERSELF ON THE BENCH SEAT IN A VERY PRECARIOUS WAY. 2 P MAX ASSIST TO THE BED WAS DONE WHEN THE PT TOLD STAFF SHE COULD NOT WALK. PT MADE HERSELF LIMP AND NEARLY FELL ON THE FLOOR. PT WAS PLACED BACK IN BED IN A SAFE POSITION STILL SPEAKING IN WORD SALAD WITH FLIGHT OF IDEAS CONTINUIOUSLY. ONCE THE PT WAS SAFE, MEDICATED WITH PRN ZYPREXA PO, PT TOLD STAFF SHE WAS FEELING AGGITATED. ASKED THE PT TO STAY IN HER BED AND NOTIFIED THE CAMERA TECHS TO CALL IF SHE GETS UP SHE RANDOMLY FORGETS SHE CAN WALK WITH HER FLIGHT OF IDEAS.
--- NOTE | 2020-06-06 19:33 | NUR ---
SHIFT SUMMARY- PT SEEMED TO IMPROVE AFTER THE PRN ZYPREXA. SHE IS PLEASENTLY CONFUSED AND MORE COOPREATIVE WITH HER CARE. PT HAD A FULL BED CHANGE AND ALLEN CARE PERFORMED MULTIPLE TIMES THIS SHIFT THE LAST BEING JUST PRIOR TO SHIFT CHANGE. PT IS CURRENTLY IN BED WITH HER CALL LIGHT IN REACH, BARRIER CREAM (BLUE) APPLIED TO ALLEN AREA THAT IS RED. PT HAS HER DINNER TRAY THAT WAS SET UP AT THAT TIME. PT FAMILY ATTEMPTED TO CALL EARLIER AND THE PT NONSENSICAL SPEACH AND CONFUSION PREVENTED HER FROM SPEAKING TO THEM APPROPRIATELY. PT CAN NOT ANSWER THE PHONE APPROPRIATELY (SHE NEEDS ASSISTANCE TO DO SO) AND SHE CAN NOT CARRY ON A CONVERSATION.
--- NOTE | 2020-06-07 06:27 | NUR ---
SHIFT SUMMARY PATIENT CONTINUES TO HAVE PARANOID DELUSIONS DUE TO HER SCHIZOPHRENIA. SHE HAS BEEN COOPORATIVE SO LONG CARE STAFF DISTRACT HER WHILE PERFORMING ADL'S WITH HER. SHE SLEPT FAIRLY WELL OVERNIGHT. BED IN LOWEST POSITION WITH WHEELS LOCKED AND ALARM ON. CALL LIGHT WTIHIN REACH. REPORT GIVEN TO ONCOMING RN.
--- NOTE | 2020-06-07 19:46 | NUR ---
SHIFT SUMMARY- PT ORIENTED TO SELF AND HAS BEEN COOPERATIVE WITH CARE THIS AFTERNOON AND EVENING FOR SOME STAFF AND NOT OTHERS. PT CONTINUES WITH THE WORD SALAD AND FLIGHT OF IDEAS. PT HAS VISUAL AND AUDITORY HALLUCINATIONS CONTINUIOUSLY. NO S&S OF DISTRESS NOTED AT THE TIME OF SHIFT CHANGE. PT ON ROOM AIR NO IV ACCESS. ON CAMERAS FOR SAFETY INCONTINENT OF BLADDER.
--- NOTE | 2020-06-08 05:57 | NUR ---
SHIFT SUMMARY NO ACUTE CHANGES THIS SHIFT, PT NON SENSICAL T/O SHIFT, TOOK MEDS WELL BUT REFUSED STOOL SOFTNERS- ACCORDING TO CHART HAS NOT HAD BM SINCE 05/30, WILL PASS ON TO DAY RN FOR MORE AGRESSIVE BOWEL CARE ORDERS. HAS NOT BEEN COOPERATIVE WITH INCONT BRIEF CHANGES- 2 PERSON CHANGES T/O SHIFT; SLEPT T/O THE NIGHT, WAKING EASILY FOR CARE AND THEN TALKING TO SELF IN ROOM FOR SOME TIME AFTER CARE HAS FINISHED. PT SLEEPING AT THIS TIME, CALL LIGHT IN REACH, BED ALARM ACTIVE, WILL CONT TO MONITOR UNTIL REPORT GIVEN TO DAY RN.
--- NOTE | 2020-06-08 16:03 | NUR ---
SHE HASN'T LET US CHECK HER ATTENDS OR CHANGE THEM SINCE HER SHOWER EARLIER TODAY. SHE HAS BEEN SITTING ON THE BENCH NEXT TO THE WALL. SHE HAS HER DRINKS AND OCCUPIES HERSELF WITH IMAGINARY ITEMS. SHE HAS VISUAL HALLUCINATIONS AND MAYBE AUDIBLE ONES.
--- NOTE | 2020-06-08 18:11 | NUR ---
SHE BELIEVES SHE IS AND ON HER MENSES. SHE IS NEITHER. SHE LET US CHANGED HER X2 TODAY FOR LARGE AMTS OF URINARY INCONTINENCE. SHE REFUSED THE PRUNE JUICE WE BROUGHT HER FOR HER BOWELS. SHE WILL START ON MIRALAX TONIGHT IF SHE'LL DRINK IT. SHE DRINKS LARGE AMTS DURING THE DAY. SHE HALLUCINATES AND IS COMPLETELY CONFUSED. SHE IS UNABLE TO CONVERSE APPROPRIATELY. HER COMMENTS ARE COMPLETELY OFF TRACK-MAKE NO SENSE. SHE HAS SAT ON THE BENCH AGAINST THE WALL ALL DAY. SHE ENTERTAINS HERSELF WELL. SHE HAS HAD A CONTENTED DAY. OTHER THAN HER TACHYCARDIA, VVS. HER METOPROLOL DOSE WILL INCREASE TONIGHT.
--- NOTE | 2020-06-08 18:34 | NUR ---
SHE DRANK THE MOM FOR BOWEL CARE.
--- NOTE | 2020-06-09 05:18 | NUR ---
SHIFT SUMMARY PT WAS QUITE IRRITABLE AT START OF SHIFT, UNCOOPERATIVE W/CARE BUT TRANSITIONED AROUND BEDTIME AND HAD AN UNEVENTFUL NIGHT, WAS ABLE TO ENCOURAGE PT TO TAKE STOOL SOFTNERS, SLEPT VERY POORLY THIS SHIFT- AWAKE MOST OF THE NIGHT PLAYING ON CELL PHONE OR TALKING TO SELF IN ROOM, FINALLY GOING TO SLEEP AROUND 0430, SLEEPING AT THIS TIME, CALL LIGHT IN REACH, WILL CONT TO MONITOR UNTIL REPORT GIVEN TO DAY RN.
--- NOTE | 2020-06-09 11:25 | NUR ---
SHE HAS NOT ALLOWED US TO CHANGE HER SO FAR THIS MORNING. HER BED IS WET FROM COFFEE AND WATER AND PROBABLY WET DOWN BELOW FROM URINE. SHE IS PARANOID AND HAS HALLUCINATIONS. SHE WRAPPED COBAN AROUND HER HEAD. "IT'S BROKEN". SHE IS UNABLE TO CONVERSE LUCIDLY. SHE ASKED FOR HER ANXIETY MEDICINE JUST NOW. I GAVE HER VALIUM.
--- NOTE | 2020-06-09 16:27 | NUR ---
SHE ALLOWED THE UPSETTER TO CLEAN HER AND CHANGE HER AFTER LUNCH. SHE THEN FELT WELL ENOUGH TO GET OOB AND TO THE BENCH. SHE IS STILL SITTING ON THE BENCH. SHE HAS HER HEAD WRAPPED WITH COBAN. SHE DID THAT THIS MORNING. SHE HAS HALLUCINATIONS AND HAS NONSENSICAL CONVERSATION. SHE STILL OFTEN THINKS SHE'S . CALLED. HE IS INCREASING HER HS MED TO SEE IF SHE WILL SLEEP TONIGHT. SHE IS TAKING HER BOWEL CARE MEDS. NO BM YET. SHE CONTINUES TO BE INCONTINENT OF URINE AND SKIN IS EXCORIATED BECAUSE SHE WON'T LET US TOUCH HER OFTEN WHEN SHE IS WET WITH URINE. SHE DID ASK FOR "ANXIETY MEDICINE" SO I GAVE HER A DOSE OF HER PRN VALIUM. THAT WAS THIS MORNING.
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
--- NOTE | 2020-06-10 18:21 | NUR ---
SHIFT SUMMARY PT IS A&O TO SELF. PT KNOWS NAME, RADHA. AT START OF SHIFT PT BELIEVED SHE WAS AND WAS HAVING A BABY AND WAS MOANING IN PAIN. PT WAS THROWING DISHES AWAY FROM MEAL TRAYS, WHEN TRYING TO REMOVE DISHES PT BECAME UPSET AND SAID IT WAS HER JOB TO REMOVE THE TRASH. BEFORE GIVING CARE TO PT OR MOVING THINGS IN THE ROOM PT WANTS TO BE ASKED PERMISSION. PT STATED ALLEN AREA HAD "BLISTERS" WHEN REQUESTING TO LOOK AT IT PT DECLINED. MEMBER SERVICES REPRESENTATIVE STATED THE AREA IS RED. DURING AFTERNOON VITALS PT WAS TAHYCARDIC WITH HR 136, PT STATED SHE FELT ANXIOUS AND AND WAS MEDICATED WITH PRN VALIUM. JUST RECHECKED AND PT PULSE WAS 123. PT CURENTLY EATING DINNER. CALL LIGHT ON HER TABLE.
--- NOTE | 2020-06-11 01:52 | NUR ---
PT C/O FEELING "RATTLED" AND HAVING DIFFICICUTLY SLEEPING. VALIUM PRN WAS DC'D TODAY AND WHILE PT FEELS ANXIOUS, SHE ISN'T AGGITATED AT ALL AND THAT IS THE INDICATION FOR PRN ZYPREXA. MADE AWARE AND ATIVAN 0.5MG PO X1 RX'D. DRUG INTERACTION W/BENZO+OLANZAPINE WAS FLAGGED SO PHARMACY WAS CONSULTED. APRIL (PHARMACIST) STATED X1 DOSE OF ATIVAN WOULD BE FINE TO BE RECIEVED BECAUSE INTERACTION WAS APPARENTLY "NOTHING SERIOUS". PLAN TO GIVE MED BUT WILL MONITOR PT CLOSELY FOR ANY S/S ADVERSE REACTION.
--- NOTE | 2020-06-11 02:16 | NUR ---
WENT TO GIVE X1 ATIVAN BUT PT IS NOW FAST ASLEEP. WILL REEVALUATE NEED IF PT AWAKENS ANXIOUS AND DC MED IF IT IS NOT REQUIRED.
--- NOTE | 2020-06-11 06:29 | NUR ---
SUMMARY: PT CONT'S ORIENTED TO SELF AND FAMILY ONLY W/PERSISTENT FLIGHTS OF IDEAS, DELUSIONS AND HALLUCINATIONS. SHE STILL BELIEVES HERSELF TO BE AND INTERMITTENTLY IN LABOR. SHE ELABORATED ON THIS TONIGHT AND STATED SHE'D "LOST ONE OF THE BABIES" AFTER WIPING ALLEN AREA AND OBSERVING BROWN TINGED SMEAR ON TISSUE. 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 DELUSION ABOUT INJURY TO HEAD PERSISTS AND SHE STILL HAS HEAD WRAPPED IN COBAN. SHE ALSO EXPLAINED HER FEAR OF USING THE BSC OR BATHROOM "BECAUSE THAT'S WHERE THE MONSTERS ARE". I ATTEMPTED TO OPEN BATHROOM DOOR AND SHE NEARLY PANICKED. PT CONT'S TO INTENTIONALLY VOID IN ATTENDS/PULLUP RESULT SO THESE WERE CHANGED PRN. SHE ACTUALLY CLEANSED OWN ALLEN AREA WHEN STAFF PROVIDED WET CLOTHES, FOLLOWED BY CREAM AND POWDER. EXCORIATION TO AREA PERSISTS BUT MAY BE SLIGHTLY IMPROVING. APPETITE IS BETTER AND PT ATE EVERYTHING ON HER DINNER TRAY STATING "WE CAN'T WASTE ANY FOOD". PT AWOKE AT ONE STAGE REPORTING FEELING "RATTLED" W/ANXIETY AND REQUESTING MED FOR SLEEP. NOTIFIED AND X1 ATIVAN RX'D BUT WAS NEVER REQUIRED PT FELL ASLEEP AND DIDN'T COMPLAIN AGAIN AFTER THAT. ASIDE FROM BIZARRE THOUGHTS AND ODD REQUESTS, PT HAS BEEN VERY PLEASANT AND COOPERATIVE W/CARE. VSS/AFEBRILE BUT CONT'S TACHY AT TIMES, POSSIBLY R/T MENTATION. NO ACUTE CHANGES. INPATIENT PSYCH RECOMMENDED BY W/PLACEMENT PENDING. WCTM/REPORT TO DAY RN.
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
--- NOTE | 2020-06-11 19:10 | NUR ---
ASSUMED CARE RECEIVED REPORT FROM HUY JACQUES, PT CURRENTLY LYING IN BED, NO ACUTE DISTRESS NOTED. PT WITH VISUAL HALLUCINATIONS, REQUESTING FOR THIS RN TO "BYPRODUCT ENGINEER MY TRAY FROM OFF THE FLOOR AND PUT IT ON TABLE." ATTEMPTED TO REMOVE OLD TRAY FROM BENCH, PT STATING "THAT'S MY ART, LEAVE IT THERE." PT THEN REQUESTING A WARM BLANKET. NO OTHER ACUTE NEEDS ASSESSED. CALL LIGHT, POSSESSIONS IN REACH, ENVIRONMENT FREE FROM HARMFUL OBJECTS. CONTINUE TO MONITOR.
--- NOTE | 2020-06-12 06:28 | NUR ---
SHIFT SUMMARY PT ASLEEP, IN NO ACUTE DISTRESS. VS REVIEWED, WNL; BP'S STABLE. PT SLEPT T/O MUCH OF NIGHT, BUT AWOKE AND ASSISTED STAFF TO PERFORM ATTENDS AND LINEN CHANGE, CALM AND COOPERATIVE WITH CARE, PROVIDED REASSURANCE T/O PROCESS. NO ACUTE CHANGES IN CONDITION NOTED, NO ACUTE NEEDS ASSESSED AT THIS TIME. CALL LIGHT, POSSESSIONS IN REACH, BED IN LOW POSITION WITH ALARMS ON. CONTINUE TO MONITOR, REPORT OFF TO DAY RN.
--- NOTE | 2020-06-12 18:06 | NUR ---
PATIENT CONTINUES TO HAVE AUDITORY AND VISUAL HALLUCINATIONS. ZYPREXA GIVEN X1 THIS AM FOR AGITATION. PATIENT DID HAVE BM THIS SHIFT AND STARTING TO BE LOOSE. INCONTINENT OF URINE/STOOL TODAY. WAS ABLE TO GET PATIENT TO SHOWER TODAY. TOLERATING REGULAR DIET. AWAITING PLACEMENT IN PSYCHIATRIC UNIT.
--- NOTE | 2020-06-13 05:22 | NUR ---
SHIFT SUMMARY PT CONTINUES TO BE DIFFICULT BEHAVIORALLY. CANNOT CARRY A NORMAL CONVERSATION. SPEECH IS DISASSOCIATED AND SCATTERED. PT BECAME UPSET AT START OF SHIFT BECAUSE THIS RN CHANGED THE NAME OF THE RN ON THE WHITEBOARD. PT STATED THAT THIS WAS "ILLEGAL". REFUSED CARE FROM THIS RN FOR A PERIOD OF TIME FOLLOWING. ALLOWED CAPTAIN/AIRLINE PILOT TO PROVIDE CARE. AFTER THIS INCIDENT PT STATED TO THIS RN, "I ONLY DO WHAT THE MEN TELL ME TO DO". PT HAD A VERY LARGE LOOSE BOWEL MOVEMENT THIS EVENING, WAS INCONTINENT OF IT. STOOL WAS COVERING HER BLE'S HER PANTS SHE WAS WEARING WERE FILLED WITH IT. PT CLEANED WELL. ALLOWED BARRIER CREAM TO BE APPLIED TO EXCORIATED ALLEN AREA. HS STOOL SOFTENERS WERE HELD PRIOR TO BOWEL MOVEMENT DAY RN HAD REPORTED SEVERAL LARGE LOOSE BM'S DURING THE DAY. PT CONTINUES TO INTERMITTENTLY YELL OUT MOANING, BELIEVING THAT SHE IS HAVING A BABY. AGREED TO TAKE MEDICATIONS THIS EVENING, HOWEVER, PT DID NOT SLEEP WELL. AWAKE MOST OF THE TIME UNTIL FALLING ASLEEP AT APPROX 0400. TAKING A COUPLE BRIEF NAPS IN BETWEEN. VITAL SIGNS STABLE. WILL CONTINUE TO MONITOR.
--- NOTE | 2020-06-14 04:33 | NUR ---
SHIFT SUMMARY PT MORE COOPERATIVE WITH STAFF THIS EVENING. ALLOWING BRIEF CHANGES. REMAINS INCONTINENT. NO ATTEMPT TO GET UP TO RESTROOM TO VOID. SKIN EXCORIATED IN ALLEN AREA. BARRIER CREAM APPLIED. CONTINUES WITH DELUSIONAL THINKING. SPEECH STILL DISASSOCIATED AND SCATTERED. CONVERSATIONS MAKE LITTLE SENSE. PT CONTINUES TO BELIEVE THAT SHE IS . ASKING AT ONE POINT IN THE NIGHT "WHY WOULD YOU WANT TO SHOVE THE BABY BACK UP THERE" WHEN CLEANING HER ALLEN AREA. "SMOKING" AN IMAGINARY "JOINT" IN ANOTHER INTERACTION. REMAINED IN BED THROUGHOUT THE NIGHT. SLEPT BETTER THIS EVENING. FALLING ASLEEP AT APPROX 2200 AND SLEEPING WHENEVER NOT BEING DISTURBED BY STAFF. PT HAD AN UNEVENTFUL NIGHT. NO COMPLAINTS OF PAIN. VITAL SIGNS STABLE. WILL CONTINUE TO MONITOR.
[2020-06-14 05:07] LABS: BASOPHILS ABSOLUTE AUTO 0.01 K/mm3 (0.00-0.23); BASOPHILS PERCENT AUTO 0 % (0-2); EOSINOPHILS ABSOLUTE AUTO 0.32 K/mm3 (0.00-0.68); EOSINOPHILS PERCENT AUTO 7 % (0-6); Hematocrit 35.5 % (33.0-51.0); Hemoglobin 10.8 g/dL (11.5-16.0); IMMATURE GRAN ABSOLUTE AUTO 0.03 K/mm3 (0.00-0.10); IMMATURE GRAN PERCENT AUTO 1 % (0-1); LYMPHOCYTES ABSOLUTE AUTO 1.37 K/mm3 (0.84-5.20); LYMPHOCYTES PERCENT AUTO 28 % (21-46); MONOCYTES ABSOLUTE AUTO 0.63 K/mm3 (0.16-1.47); MONOCYTES PERCENT AUTO 13 % (4-13); Mean Corpuscular HGB 29.9 pg (26.0-34.0); Mean Corpuscular HGB Conc 30.4 g/dL (31.5-36.5); Mean Corpuscular Volume 98 fL (80-100); Mean Platelet Volume 11.1 fL (9.1-12.4); NEUTROPHILS ABSOLUTE AUTO 2.57 K/mm3 (1.96-9.15); NEUTROPHILS PERCENT AUTO 52 % (41-73); Platelet Count 175 K/mm3 (150-400); RDW Coefficient Variation 13.5 % (11.7-14.2); Red Blood Cell Count 3.61 M/mm3 (3.80-5.20); White Blood Cell Count 4.93 K/mm3 (4.00-11.30)
--- NOTE | 2020-06-14 17:54 | NUR ---
SHIFT SUMMARY PATIENT UP INDEPENDENT IN ROOM. PATIENT DENIES PAIN, NAUSEA, AND SHORTNESS OF BREATH. AUDITORY AND VISUAL HALLUCINATIONS, FLIGHT OF IDEAS. PARNOID DELUSIONS. CONTINENT/INCONTINENT.EATING AND DRINKING WELL. PENDING PSYCHIATRIC PLACEMENT.
--- NOTE | 2020-06-15 04:25 | NUR ---
SHIFT SUMMARY NO ACUTE CHANGES THIS SHIFT. PT SLEPT WELL T/O NIGHT. PT HAS HAD TWO EPISODES ON INCONTINENCE, AND NEEDS EDUCATED TO WHY WE NEED TO CLEAN AND CHANGE HER TO KEEP HER ALLEN AREA CLEAN AND DRY. PT IS CURRENTLY LAYING IN BED, AWAKE, EVEN AND UNLABORED RESPIRATIONS. BED IN LOWERED POSITION WITH SIDE RAILS UP X2 FOR SAFETY. CALL LIGHT AND PERSONAL ITEMS WITH IN REACH. NO APPARENT NEEDS OR DISTRESS AT THIS TIME, WILL CONTINUE TO MONITOR UNTIL REPORT GIVEN TO DAY RN.
--- NOTE | 2020-06-15 16:48 | NUR ---
PT HAS BEEN AGREEABLE AND PLEASANT THIS SHIFT THOUGH SHE CONTINUES TO HAVE HALLUCINATIONS BOTH VISUAL AND AUDIBLE. SHE HAS HAD NO AGGRESSION OR ANGER TOWARD STAFF AND HAS BEEN REDIRECTABLE WHEN NEEDED. SHE CONTINUES TO STAY IN BED . NO ACUTE CHANGES TO PT, CALL LIGHT WITHIN REACH.
--- NOTE | 2020-06-15 21:42 | NUR ---
[facility] SENT OFF A FEW REQUESTED ITEMS THAT WERE MISSING FROM REFERRAL. H & P, PROVIDER PROGRESS NOTES (DATED BACK TO 06/12/20). STILL MISSING INTAKE QUESTIONS AND COVID SCREENING
--- NOTE | 2020-06-16 04:27 | NUR ---
SHIFT SUMMARY NO ACUTE CHANGES THIS SHIFT. WHILE GIVING EVENING MEDICATIONS PT SPIT A FEW OUT, STATING "WHAT ARE YOU TRYING TO DO, POISON ME WITH THE [place] TEA WATER?" THIS RN TRIED TO CALM PT. PT'S DAUGHTER CALLED AT THIS TIME, PT WAS HAVING HALLUCINATIONS WHILE TALKING TO DAUGHTER. THIS RN TALKED WITH DAUGHTER ON THE PHONE, DAUGHTER STATED "I DON'T KNOW WHAT TO DO, WE JUST LOST MY STEPDAD AND NOW IT FEELS LIKE I'M LOSING MY MOM". THIS RN CONSOLED DAUGHTER, LETTING HER KNOW THIS RN HAD JUST GIVEN PT MEDICATION TO HELP CALM THE PT. PT THEN SLEPT WELL T/O NIGHT, WAKING ONLY TO TELL US THAT SHE NEEDED TO BE CHANGED. PT IS LAYING IN BED WATCHING TV. BED IN LOWERED POSITION WITH SIDE RAILS UP FOR SAFETY. CALL LIGHT AND PERSONAL ITEMS WITH IN REACH. NO APPARENT NEEDS OR DISTRESS AT THIS TIME, WILL CONTINUE TO MONITOR UNTIL REPORT GIVE TO DAY RN. [facility]'S [facility] IN LOCKBOX, NEEDS TO BE FILLED OUT FOR PLACEMENT.
--- NOTE | 2020-06-16 15:57 | NUR ---
PT HAS BEEN PLEASANT THIS SHIFT. SHE REMAINS VERY CONFUSED WITH HALLUCIATIONS BOTH VISUAL AND AUDIBLE CONSUMING HER DAY. SHE HAS NOT TRIED TO GET OUT OF BED AND ALLOWED STAFF TO GIVE HER A BED BATH. PT SPENDS MOST OF HER DAY TALKING TO WHOMEVER FILLS HER MIND AT THE TIME. SHE HAS SHOWN NO AGGRESSION TOWARDS STAFF AND HAS BEEN QUITE KIND AND AND APPRECIATIVE OF CARES. NO ACUTE CHANGES TO PT. CALL LIGHT WITHIN REACH.
--- NOTE | 2020-06-17 04:53 | NUR ---
SHIFT SUMMARY ALERT, ABLE TO MAKE NEEDS KNOWN. NONSENSICAL MOST TIMES. COOPERATIVE WITH CARE THIS SHIFT. NO C/O PAIN/DISCOMFORT. APPEARED TO REST MUCH OF THE NIGHT. INCONTINENT; ROUTINE ATTENDS CHECKS. PLACED BARRIER CREAM TO EXCORIATED GROIN/BUTTOCKS. NO ACUTE CHANGES NOTED OVERNIGHT. VSS/AFEBRILE. AWAITING PLACEMENT AT INPATIENT PSYCH. BED REMAINS IN LOWEST POSITION. CALL LIGHT AND BELONGINGS WITHIN REACH. CONTINUE WITH CURRENT PLAN OF CARE. REPORT TO ONCOMING RN.
[2020-06-17 15:04] LABS: Influenza A, PCR NEGATIVE (NEGATIVE); Influenza B, PCR NEGATIVE (NEGATIVE); Resp Syncytial Virus, PCR NEGATIVE (NEGATIVE)
[2020-06-17 15:08] LABS: SARS-Cov-2 (COVID-19) PCR, MMC POSITIVE (NEGATIVE)
--- NOTE | 2020-06-17 16:47 | NUR ---
SHIFT SUMMARY- PT IS ALERT. SHE WAS UNCOPERATIVE THIS MORNING. SHE WAS REFUSING TO LET ANYONE IN HER ROOM THIS MORNING. SHE BECAME MORE COOPERATIVE THIS AFTERNOON. SHE IS EATING AND DRINKING WELL. HER SON WAS AT BEDSIDE THIS AFTERNOON. SHE IS INC. AND REQUIRED CHANGING THIS SHIFT. SHE HAD A BM THIS SHIFT. HER BED IS IN THE LOW POSITION AND CALL LIGHT IS WITHIN REACH.
--- NOTE | 2020-06-17 20:26 | NUR ---
ASSUMPTION OF CARE. ALERT ORIENTED TO SELF. CAN BE VERY ABLIVIENT AT TIMES. DOES NOT STAY ON TRACK WHEN TRYING TO HAVE CONVERSATION, UNABLE TO COMPERHEND WHAT AND WHERE SHE IS AT. STATES SHE IS DIFFERENT PEOPLE, CALLING HERSELF DIFFERENT NAMES. HAS VERY DARK THOUGHTS AT TIMES. HULLUCINATING TALKING ABOUT HOW TO KILL SOMEONE, AND ASKING WHEN SHE CAN DO IT. WHEN I WAS IN THE ROOM, SHE TOLD ME THAT I WAS EVIL AND NEEDED TO . TOLD ME TO GET OUT OF THE ROOM SEVERAL TIMES, IT WAS DIFFICULT TO TELL IF SHE WAS TALKING TO ME OR HULLUCINATING AGAIN. WHEN DOING MY ASSESSMENT SHE GOT MAD AND TOLD ME NOT TO TOUCH HER AGAIN JUST OUT OF THE BLUE. DID THROW HER CUP OF WATER ACROSS THE ROOM. ALSO GOT MAD FOR TRYING TO TAKE HER TRAY WHEN SHE SAID SHE DID NOT WANT IT. TOLD ME THAT SHE DOES NOT KNOW IF IT WAS POISEN OR NOT. SHE IS VERY ALL OVER THE PLACE. CALL LIGHT IS IN REACH AND BED ALARM IS ON.
--- NOTE | 2020-06-18 05:26 | NUR ---
SHIFT SUMMARY: CONFUSED, AUDITORY AND VISUAL HULLUCINATIONS, THREATING AT TIMES, SEVERAL DARK MORBID THOUGHTS WERE MENTIONED ABOUT KILLING PEOPLE INCUDING STAFF. WAS HULLICINATING TALKING ABOUT HOW TO KILL SOMEONE AND TALKING ABOUT HOW SHE ALREADY DID IT THAT WAY. CONVERSATIONS WERE ALL OVER THE PLACE, SHE NEVER STAYED ON TRACK, SOMETIMES DID NOT ALLOW ANYONE TO TOUCH HER OR DO THINGS IN THE ROOM. VS WNL WITH SLIGHT ELEVATION OF HER HR TO LOW 100'S. NO PAIN NOTED. DID NOT EAT DINNER SHE THOUGHT IT WAS POISENED. DID TAKE HER MEDS WITH SOME COACHING. SLEPT GOOD MOST OF THE NIGHT. NO OTHER CHANGES TO NOTE. CALL LIGHT HAS REMAINED IN REACH AND BED ALARM ON.
--- NOTE | 2020-06-18 09:50 | NUR ---
AROUND 0830 AM FOUND PATIENT IN 348 CALLING FOR HELP WITH PHONE CORD WRAPED AROUND PATIENTS NECK LIGHTLY TOOK THE PHONE AND PHONECORD FROM ROOM TOLD NURSE
--- NOTE | 2020-06-18 17:38 | NUR ---
SHIFT SUMMARY PT HAS BEEN CONFUSED ALL SHIFT AND COOPERATIVE WITH CARE MOST OF THE TIME. PT HAS REFUSED TO LET THIS RN AND CHAIRMAN PRESIDENT AND CHIEF EXECUTIVE OFFICER CHANGE HER A COUPLE OF THIS TIME THIS SHIFT. PT DID TAKE AM MEDICATIONS. PT DOES NOT MAKE ANY SENSE WHEN ASKING HER QUESTIONS OR TALKING WITH HER. DR. NATHAN INTO SEE PT AND CHANGED HER SEROQUEL DOSE. NO ACUTE CHANGES THIS SHIFT. WILL CONTINUE TO MONITOR AND REPORT TO ONCOMING RN.
--- NOTE | 2020-06-18 19:17 | NUR ---
ASSUMPTION OF CARE. AO TO SELF ONLY, DOES NOT STAY ON TASK BUT WAS COOPERATIVE WITH ASSESSMENT TONIGHT. UNABLE TO ANSWER QUESTIONS WHEN ASKED TENDS TO GO OFF ON OTHER COVERSATIONS DUE HULLUCINATIONS. SHE IS MORE PLEASANT TONIGHT, COVERSATION IS MORE ON POSITIVE SIDE. NO SIGNS OF DISTRESS. STILL NOT EATING DINNER. ENCOURAGED HER TO EAT, SHE SAID SHE WILL, LEFT TRAY IN FRONT OF HER. CALL LIGHT IS IN REACH, PATIENT DOES NOT USE. BED ALARM IS ON.
--- NOTE | 2020-06-19 05:31 | NUR ---
SHIFT SUMMARY: ORIENTED TO SELF, WAS MORE PLEASANT THIS SHIFT, FOLLOWED DIRECTION AND ALLOWED STAFF TO TAKE CARE OF HER. NO DARK THOUGHTS, BEHAVIOR OUTBURST. DID NOT EAT DINNER AGAIN. GROIN STILL VERY RED AND NEEDING SOME NYSTATIN POWDER, HAVE BEEN USING BARRIER CREAM ON IT. VS HAVE BEEN STABLE. SHE HAS KEPT HER SELF COMPANY TALKING TO HULLUCINATIONS TILL SHE WENT TO SLEEP. CALL LIGHT IS IN REACH BUT SHE DOES NOT USE IT. BED ALARM IS ON.
--- NOTE | 2020-06-20 04:17 | NUR ---
SUMMARY PT REMAINS CONFUSED AND HALLUCINATING. PT COOPERATIVE WITH CARE. PT TOOK PM MEDS W/OUT DIFFICULTY. PT HAS SLEPT WELL. PT CALLS OUT TO MAKE HER NEEDS KNOWN. PT CURRENTLY SLEEPING AND IN NO DISTRESS. CALL LIGHT IN REACH AND BED ALARM ON.
--- NOTE | 2020-06-20 18:45 | NUR ---
SHIFT SUMMARY PT HAS BEEN CONFUSED BUT COOPERATIVE THIS SHIFT. PT CONTINUES TO HAVE NONSENSICAL CONVERSATION AND HALLUCINATING. NO COMPLAINTS OF PAIN THIS SHIFT. PT HAS BEEN EATING AND WITH ENCOURAGEMENT WILL EAT BY HERSELF. BED BATH GIVEN THIS SHIFT. THIS RN ENCOURAGED PT TO GET OOB AND TO NOT VOID IN HER ATTENDS TO HELP HEAL HER SKIN. NO CHANGES THIS SHIFT. WAITING FOR PLACEMENT. CALL LIGHT IN REACH AND BED ALARM ON FOR SAFETY.
--- NOTE | 2020-06-21 03:34 | NUR ---
SUMMARY PT REMAINS CONFUSED. PT HAS BEEN COOPERATIVE THIS SHIFT. PT HAS NO NEW ISSUES NOTED. PT CURRENTLY SLEEPING AND BREATHING EASY. CALL LIGHT IN REACH.
[2020-06-21 05:31] LABS: BASOPHILS ABSOLUTE AUTO 0.03 K/mm3 (0.00-0.23); BASOPHILS PERCENT AUTO 0 % (0-2); EOSINOPHILS ABSOLUTE AUTO 0.13 K/mm3 (0.00-0.68); EOSINOPHILS PERCENT AUTO 2 % (0-6); Hematocrit 39.7 % (33.0-51.0); Hemoglobin 12.9 g/dL (11.5-16.0); IMMATURE GRAN ABSOLUTE AUTO 0.11 K/mm3 (0.00-0.10); IMMATURE GRAN PERCENT AUTO 2 % (0-1); LYMPHOCYTES ABSOLUTE AUTO 1.78 K/mm3 (0.84-5.20); LYMPHOCYTES PERCENT AUTO 27 % (21-46); MONOCYTES ABSOLUTE AUTO 0.75 K/mm3 (0.16-1.47); MONOCYTES PERCENT AUTO 11 % (4-13); Mean Corpuscular HGB 30.6 pg (26.0-34.0); Mean Corpuscular HGB Conc 32.5 g/dL (31.5-36.5); Mean Corpuscular Volume 94 fL (80-100); Mean Platelet Volume 10.8 fL (9.1-12.4); NEUTROPHILS ABSOLUTE AUTO 3.91 K/mm3 (1.96-9.15); NEUTROPHILS PERCENT AUTO 58 % (41-73); Platelet Count 272 K/mm3 (150-400); RDW Coefficient Variation 13.4 % (11.7-14.2); RDW Standard Deviation 46.6 fL (35.1-46.3); Red Blood Cell Count 4.21 M/mm3 (3.80-5.20); White Blood Cell Count 6.71 K/mm3 (4.00-11.30)
--- NOTE | 2020-06-21 18:36 | NUR ---
SHIFT SUMMARY PT AXO TO SELF THOUGH MAKES NONSENSICAL STATEMENTS, FIGHT OF IDEAS AND HALLUCINATIONS VERY FREQUENTLY THROUGHOUT THE SHIFT. PT COOPERATIVE WITH CARE. NO IV IN PLACE. NO ACUTE CHANGES THIS SHIFT. GROIN EXCORITATIONS NOTED AND MEDICATED PER EMAR. OOB ENCOURAGED. PT UP TO CHAIR FOR BREAKFAST AND FOR A COUPLE HOURS. BED IN LOW POSITION, CALL LIGHT WITHIN REACH.
--- NOTE | 2020-06-22 05:15 | NUR ---
LOBITO WAS AWAKE MOST OF NIGHT. HAVING BOTH AUDIO AND VISUAL HALLUCINATIONS. DISTRUSTING AT FIRST, SHE SLOWLY BECAME MORE TRUSTING OF HER CARE. NO COMPLAINTS OF PAIN OR SOB. PLEASANT AND COOPERATIVE WITH CARE UNTIL AROUND 0400 WHEN PATIENT GOT FRIGHTENED OF SOMETHING AND GOT A LITTLE TEARFUL.
--- NOTE | 2020-06-22 17:44 | NUR ---
Shift Summary A/O to self. Auditory and visual hallucinations present. Patient constantly talking to self in a loud and nonsensical. Attempted to assist patient to bathroom, patient refused and was fearful of standing saying "I can't stand". Able to follow simple commands like boosting self up in bed, lifting buttocks for brief changes, and turning/repositioning. Pleasantly confused, sometimes tearful. Denies pain. Answer questions with inappropriate responses. Otherwise, no acute changes. WCTM.
--- NOTE | 2020-06-23 04:43 | NUR ---
SUMMARY: A/O TO SELF, FAMILY AND SURROUNDINGS BUT CONT'S TO TALK TO SELF NONSENSICALLY AND HAVE HALLUCINATIONS. SHE'S BEEN PLEASANT AND COOPERATIVE W/CARE TONIGHT BUT STILL REFUSES TO GET OOB D/T FEAR SHE "CAN'T WALK". PT ABLE TO BOOST SELF IN BED AND REPOSITION W/O DIFFICULTY. ATTENDS AND LINEN CHANGED FOR URINARY INCONTINENCE W/ALLEN CARE COMPLETED. CREAM AND MICONAZOLE POWDER APPLIED FOR RASH AND EXORIATION. SHE WAS AGREEABLE AND TOOK HS MEDS W/O ISSUE THEN SLEPT MAJORITY OF NOCTE. PT DENIED PAIN AND ALL OTHER COMPLAINTS. VSS AND NO ACUTE CHANGES. PLACEMENT PENDING. WCTM AND REPORT TO DAY RN.
--- NOTE | 2020-06-23 07:44 | NUR ---
START OF SHIFT PATIENT CLIMBING OUT OF BED SAYING "KEEP THE BATHROOM DOOR OPEN SO HE CAN POOP" AND CLAIMING "RONAK SLEPT HERE LAST NIGHT" DESPITE NO VISITORS AT NIGHT. REMOTE MONITORING ON, BED IN LOWEST POSITION, CALL LIGHT NEARBY, ALARM ON FOR SAFETY.
--- NOTE | 2020-06-23 17:00 | NUR ---
Shift Summary Patient has been extremely confused today. Refusing to get out of bed saying she can't walk. Also refused all morning meds. Attempted to try several other occasions but patient continues to refuse meds. Incontinent. [id number] visited. Appetite remains very poor. No new concerns, WCTM.
--- NOTE | 2020-06-23 17:33 | NUR ---
[place] CONTACT Itzel from [facility] called and asked for updated progress note to be faxed to . Questions answered RE ADL's needs. Progress notes faxed.
--- NOTE | 2020-06-23 20:35 | NUR ---
PT REFUSED ALL HS MEDS DESPITE ENCOURAGEMENT. WILL ATTEMPT AGAIN LATER. SHE IS CURRENTLY HAVING VISUAL AND AUDITORY HALLUCINATIONS AND HAVING CONVERSATIONS W/PEOPLE SHE BELIEVES TO BE IN HER ROOM. SHE ISN'T ANSWERING Q'S ASKED OF HER BUT INSTEAD REPLIES W/ENTIRELY NONSENSICAL RESPONSES. SHE WAXES AND WANES BETWEEN LAUGHING AND FAKE CRYING. PT WON'T OPEN EYES TO LOOK AT STAFF AND KEEPS TEETH CLENCHED SHUT W/ATTEMPT TO GIVE MEDS OR SIPS OF WATER/ENSURE. SHE IS CURRENTLY REFUSING ADL'S WELL BUT ATTENDS ARE DRY AT THIS TIME AND SHE'S OBSERVED REPOSITIONING HERSELF.
--- NOTE | 2020-06-24 05:31 | NUR ---
SUMMARY: PT MORE CONFUSED TONIGHT AND SEEMS ORIENTED TO SELF AND FAMILY/ FRIENDS ONLY. DELUSIONS AND HALLUCINATIONS ARE PERSISTENT AND SHE'S OBSERVED TALKING TO SELF MAJORITY OF NIGHT. SHE REFUSED MEDS DESPITE ENCOURAGEMENT AND WAS ONLY PARTIALLY COMPLIANT W/CARE AND ADL'S. ATTENDS AND LINEN WERE CHANGED PRN FOR SATURATION W/URINE BUT PT REFUSED ALLEN CARE. SHE CLENCHED MOUTH SHUT W/ATTEMPTS AT MEDS OR ORAL HYDRATION/NUTRITION. PT KEPT EYES SHUT WHEN STAFF WERE IN ROOM AND SHE WOULDN'T OPEN THEM UPON REQUEST. SHE WAS HEARD MAKING VARIOUS NOISES AND SINGING T/O NOCTE AND HAS BEEN PLEASANT DESPITE NONCOMPLIANCE. SEE PREVIOUS NOTES FOR ADDITIONAL DETAILS. NO ACUTE CHANGES, VSS/AFEBRILE. PLACMENT PENDING. WCTM AND REPORT TO DAY RN.
--- NOTE | 2020-06-24 18:34 | NUR ---
SHIFT SUMMARY: NO ACUTE CHANGES TO REPORT THIS SHIFT. PT ALERT; ORIENTED TO SELF; IRRITABLE / LABILE; COOPERATIVE WITH CARE. NO C/O PAIN THIS SHIFT. ALLEN-AREA SKIN RED/IRRITATED; COOPERATIVE WITH POWDER/CARE. HX SCHIZO/BIPOLAR; HALLUCINATIONS; PARANOIA. AWAITING PLACEMENT. WCTM.
--- NOTE | 2020-06-24 22:33 | NUR ---
06/24/205 PT REFUSED TO TAKE MEDS WITH FLUIDS. SHE REQUESTED PUDDING AND MEDS WERE GIVEN WITH PUDDING AND SHE TOOK THEM WITH MUCH ENCOURAGEMENT.
--- NOTE | 2020-06-25 19:37 | NUR ---
SHIFT SUMMARY: NO ACUTE CHANGES TO REPORT THIS SHIFT. PT ALERT; CONFUSED; COOPERATIVE WITH CARE. MEDICALLY STABLE; AWAITING PLACEMENT IN INPATIENT PSYCH FACILITY. REPORT GIVEN TO ONCOMING RN.
--- NOTE | 2020-06-26 02:53 | NUR ---
06/26/20 0250 PT SLEEPING WELL. NO DISTRESS NOTED.
--- NOTE | 2020-06-26 06:15 | NUR ---
06/26/20 0615 PT HAS BEEN MORE COOPERATIVE THIS SHIFT WITH LESS HALLUCINATIONS AND EMOTIONAL EPISODES. CONTINUES TO SLEEP WELL THIS SHIFT.
[2020-06-26 09:45] LABS: BASOPHILS ABSOLUTE AUTO 0.03 K/mm3 (0.00-0.23); BASOPHILS PERCENT AUTO 0 % (0-2); EOSINOPHILS ABSOLUTE AUTO 0.04 K/mm3 (0.00-0.68); EOSINOPHILS PERCENT AUTO 1 % (0-6); Hematocrit 42.5 % (33.0-51.0); Hemoglobin 13.5 g/dL (11.5-16.0); IMMATURE GRAN ABSOLUTE AUTO 0.06 K/mm3 (0.00-0.10); IMMATURE GRAN PERCENT AUTO 1 % (0-1); LYMPHOCYTES ABSOLUTE AUTO 1.48 K/mm3 (0.84-5.20); LYMPHOCYTES PERCENT AUTO 21 % (21-46); MONOCYTES ABSOLUTE AUTO 0.63 K/mm3 (0.16-1.47); MONOCYTES PERCENT AUTO 9 % (4-13); Mean Corpuscular HGB 29.9 pg (26.0-34.0); Mean Corpuscular HGB Conc 31.8 g/dL (31.5-36.5); Mean Corpuscular Volume 94 fL (80-100); Mean Platelet Volume 11.5 fL (9.1-12.4); NEUTROPHILS ABSOLUTE AUTO 4.72 K/mm3 (1.96-9.15); NEUTROPHILS PERCENT AUTO 68 % (41-73); Platelet Count 267 K/mm3 (150-400); RDW Coefficient Variation 13.1 % (11.7-14.2); RDW Standard Deviation 45.3 fL (35.1-46.3); Red Blood Cell Count 4.52 M/mm3 (3.80-5.20); White Blood Cell Count 6.96 K/mm3 (4.00-11.30)
--- NOTE | 2020-06-26 16:15 | NUR ---
SUMMARY PT IS CONFUSED, LABILE w PARANOID DELUSIONS. CONTINUOSLY MAKING BIZZARE STATEMENTS, @ X'S YELLING OUT. THIS AM WAS ABLE TO GET HER TO TAKE PRN ORAL ZYPREXA & METOPROLOL HOWEVER SHE REFUSED OTHER MEDS & HAS REFUSED ORAL ZYPREXA THIS AFTERNOON. SHE HAS DECLINED OOB, NO ATTEMPTS TO GET UP UNASSISTED. GRAIN TRADER GAVE BEDBATH TODAY, GROIN/BUTTOCKS RASH ASSESSED, ANTIFUNGAL POWDER APPLIED, NO OPEN AREAS NOTED. POOR APPETITE, SUPERVISION & ASSIST TO EAT PROVIDED. VSS. DR DAVIS & TEST HOLE DRILLER IN THIS AM, STATE CONTINUE TO AWAIT INPT PSYCHE.
--- NOTE | 2020-06-27 05:53 | NUR ---
[facility] COORDINATOR SUMMARY NO ACUTE CHANGES THIS SHIFT. PT AAOX1, VERY CONFUSED AND DELUSIONAL. DENIES SOB OR PAIN. WILLINGLY TOOK ALL OF HER BEDTIME MEDS ASIDE FROM THE PROBI[employer]. PT HAS SLEPT OFF/ON THROUGH THE NIGHT. VSS, WILL CONTINUE TO MONITOR.
--- NOTE | 2020-06-27 18:23 | NUR ---
SHIFT SUMMARY LOBITO WAS VERY CONFUSED, VERY LABILE MOOD. NONSENSICAL SPEECH, UNABLE TO FOLLOW DIRECTIONS WELL. INCONTINENT URINE THIS SHIFT. HELD METOPROLOL THIS SHIFT DUE TO LOW BP. CALL LIGHT IN REACH, BED ALARM ON, WCTM
--- NOTE | 2020-06-28 05:18 | NUR ---
LINING INSERTER SUMMARY PT AAOX1. CONFUSED WITH DELUSIONAL AND GRANDIOSE BEHAVIOR. PT MORE EMOTIONAL AT TIMES, CRYING SUDDENLY FOR NO APPARENT REASON. DID SLEEP BETTER TONIGHT COMPARED TO YESTERDAY. DENIES PAIN, SOB. VSS, WILL CONTINUE TO MONITOR.
--- NOTE | 2020-06-28 19:24 | NUR ---
SHIFT SUMMARY LOBITO STILL VERY CONFUSED THIS SHIFT, NONSENSICAL SPEECH. INCONTINENT URINE AND STOOL. TRIED TO GET PT OUT OF BED FOR LUNCH, BUT PT UNABLE TO FOLLOW DIRECTIONS. HOWEVER, SHE SET OFF BED ALARM ONCE THSI SHIFT AND GOT UP TO EDGE OF BED, LOOKED QUITE STRONG. LIKELY IS AN AO1 IF SHE BECOMES ABLE TO FOLLOW DIRECTIONS/CUES. TOOK PILLS WITH HER MORNING OATMEAL WITHOUT DIFFICULTY. YEAST RASH IN GROIN, ANTIFUNGAL APPLIED. DENIED PAIN. CALL LIGHT IN REACH, BED ALARM ON, REPORT GIVEN TO NIGHT NURSE
--- NOTE | 2020-06-28 22:07 | NUR ---
PATIENT HAVING AUDITORY AND VISUAL HALLUCINATIONS HEARING AND SEEING A WOMAN NEWELL.
--- NOTE | 2020-06-29 03:38 | NUR ---
SHIFT SUMMARY PATIENT HAD NO ACUTE CHANGES OBSERVED. ALERT TO SELF WITH NONSENSICAL SPEECH AND BEDREST. VISUAL AND AUDITORY HALLUCINATIONS REPORTING A WOMAN SINGING IN ROOM AND SAW ANOTHER PERSON IN ROOM. TAKES MEDICATION WHOLE WITH APPLESAUCE. NO IV ACCESS. BEDREST. VSS/AFEBRILE. DENIES PAIN, SOB, AND N/V. UNABLE TO FOLLOW DIRECTIONS. CALL LIGHT IN REACH. BED IN LOWEST POSITION AND ALARM ACTIVATED. WILL CONTINUE TO MONITOR UNTIL DAY SHIFT NURSE ASSUMES CARE.
--- NOTE | 2020-06-29 16:40 | NUR ---
PATIENT OFTEN DOES NOT FOLLOW DIRECTIONS. DOES NOT ANSWER QUESTIONS WITH APPROPRIATE RESPONSES, AND HAS IMPULSIVE BEHAVIORS. PATIENT HAS GRANDIOSE DELUSIONS, STATING SHE IS A "MERMAID", AND THAT SHE IS "UNDERWATER", THAT SHE IS "HAVING A BABY". AT TIMES SHE BECOMES AGITATED AND STATES TO STAFF, "DO NOT TOUCH ME, YOU DO NOT HAVE PERMISSION, I DID NOT GIVE YOU PERMISSION TO TOUCH ME". SISTER NINA ([phone]) CALLS WITH CONCERNS THAT PATIENT IS NOT IMPROVING. PATIENT GAVE PERMISSION FOR ME TO SPEAK WITH SISTER NINA. SISTER STATES PATIENT HELD A JOB AND CARED FOR HERSELF PREVIOUSLY. SISTER STATES SHE AND PATIENT'S SON REQUEST PATIENT GO TO INPT PSYCH AT [facility] "WHERE SHE'LL GET THE CARE SHE NEEDS". SISTER REQUESTS TO SPEAK WITH PSYCHIATRY [facility]MA REGARDING PLAN OF CARE AND PROGNOSIS. PER CASE MANAGEMENT, PATIENT IS ON WAIT-LIST TO GO TO [facility]. DUE TO PREVIOUS COVID POSITIVE RESULT, [facility] IS THE ONLY FACILITY WILLING TO ACCEPT, AND HAS A LONG WAITLIST.
--- NOTE | 2020-06-30 04:12 | NUR ---
SHIFT SUMMARY PATIENT HAD NO ACUTE CHANGES OBSERVED. ALERT TO SELF WITH NONSENSICAL SPEECH.IN ROOM WITH COVERS OVER HER HEAD. MILD AGITATION WHEN COVERS REMOVED FOR VITALS, ASSESSMENT, AND MEDICATION ADMINISTRATION. TAKES MEDICATION WHOLE IN APPLESAUCE. BEDREST MOSTLY BUT ABLE TO GET OOB ON OWN. BED ALARM ON FOR BEING IMPULSIVE. NO OOB EVENTS. VSS/AFEBRILE. DENIES PAIN, SOB, AND N/V. NO IV ACCESS. SLEPT MOST OF THE SHIFT. CALL LIGHT IN REACH. BED IN LOWEST POSITION AND BED ALARM ACTIVATED. WILL CONTINUE TO MONITOR UNTIL DAY SHIFT NURSE ASSUMES CARE.
--- NOTE | 2020-07-01 03:36 | NUR ---
SHIFT SUMMARY PATIENT HAD NO ACUTE CHANGES OBSERVED. ALERT TO SELF WITH NONSENSICAL SPEECH. COOPERATIVE WITH ASSESSMENT AND MEDICATION ADMINISTRATION WITH APPLESAUCE. BECOMES AGITATED RIGHT BEFORE SLEEP AND WANTS ROOM QUIET AND PULLS COVERS OVER HER HEAD. VSS/FEBRILE. DENIES PAIN, SOB, AND N/V. MAY BE IMPULSIVE WITH OOB ATTEMPTS BUT NO EVENTS THIS SHIFT. NO IV ACCESS. CALL LIGHT IN REACH. BED IN LOWEST POSITION AND ALARM ACTIVATED. WILL CONTINUE TO MONITOR UNTIL DAY SHIFT NURSE ASSUMES CARE.
--- NOTE | 2020-07-01 17:29 | NUR ---
PATIENT IS ALERT AND ORIENTED TO SELF. SHE HAS GRANDIOSE DELUSIONS. SHE HAS BEEN COOPERATIVE WITH CARE TODAY. THE REDNESS IN HER ALLEN AREA IS LOOKING BETTER. ATTENDS IN PLACE. PATIENT IS CRYING AT THIS TIME, NON-SENSICAL SPEECH. PATIENT HAS A GOOD APPETITE. WILL CONTINUE TO MONITOR
--- NOTE | 2020-07-01 22:08 | NUR ---
MED REFUSAL: PATIENT IS REFUSING ALL HS MEDICATIONS. ATTEMPTED MULTIPLE TIMES.
--- NOTE | 2020-07-01 22:51 | NUR ---
AGGITATION: PATIENT IS REPEATEDLY SETTING OFF BED ALARM. IS TELLING STAFF SHE WILL HIT US IF WE TOUCH HER. PATIENT IS AGGITATED WHEN BED ALARM GOES OFF AND IS PARANIOD. REPORTING ITCHING AND REQUESTS BENADRYL THEN REFUSES TO TAKE IT. CHARGE NURSE IS AWARE. PATIEN IS SITTING ON EDGE OF BED, BED ALARM IS ON FOR SAFETY.
--- NOTE | 2020-07-02 02:58 | NUR ---
AGGITATION/ANXIETY: PATIENT HAS CONTINUED TO REFUSE ALL ORAL MEDICATIONS. STREET LIGHT SERVICER ATTEMPTS TO GIVEN ORAL ZYPREXA. PATIENT IS EMOTIONALLY LIABLE, PARANOID, ANXIOUS AND CAN NOT IDENTIFY PAIN OR DISCOMFORT. PATIENT CONTINUES TO REFUSE ORAL MEDS. ZYPREXA IS GIVEN IM PER MAR. BED ALARM IS ON FOR SAFETY.
--- NOTE | 2020-07-02 06:58 | NUR ---
SHIFT SUMMARY: PATIENT HAD GOOD EFFECT FROM ZPREXA IM. SLEPT WELL AND WOKE UP IN A GOOD MOOD. INC OF LARGE AMTS OF URINE.
--- NOTE | 2020-07-02 17:10 | NUR ---
Shift Summary A/O to self. Positive for hallucinations, patient talking to and answering self in room. Also continues to talk to others "Bert" and "Richard". Labile mood, tearful at times. Refused AM meds except for 2 tabs of Vitamin D. Patient states "I don't take any medications. The only thing I take is two vitamin D's". Has not gotten out of bed, patient refuses and claims she can not walk. No acute changes with behavior. WCTM.
--- NOTE | 2020-07-03 04:41 | NUR ---
SHIFT SUMMARY PT CONTINUES WITH LOOSE ASSOCIATIONS. CONVERSATIONS ARE MOSTLY SCATTERED AND NONSENSICAL. PT BECOMES UPSET ABOUT BIZZARE AND RANDOM THINGS. INITIALLY WHEN ENTERING HER ROOM SHE WOULD ONLY YELL AT ME TO GET OUT, SHE KEPT YELLING "KEEP BACKING OUT" EVEN AFTER I WAS OUT OF THE ROOM FOR SOME TIME. GAVE THE PT SOME TIME AND PT WAS MORE RECEPTIVE WHEN ENTERING HER ROOM AGAIN. INITIALLY DID NOT WANT TO TAKE HER MEDICATIONS STATING A BELIEF THAT THEY WOULD KILL HER. PT ONLY AGREED TO TAKE THE MEDICATIONS AFTER THIS RN STATED THAT DR. FENTON WANTED HER TO TAKE HER THEM. PT SLEPT THROUGH MOST OF THE NIGHT. MOSTLY ALLOWING CARE THROUGH THE NIGHT. PT INCONTINENT. LARGE FORMED BM THIS EVENING. SKIN IN ALLEN AREA IMPROVING BUT CONTINUES TO HAVE SOME REDNESS TO GROIN, ANTIFUNGAL POWDER APPLIED TO ALLEN AREA AND BARRIER CREAM APPLIED TO BOTTOM. PT HAD MOSTLY UNEVENTFUL NIGHT. CONTINUES TO AWAIT PLACEMENT. VITAL SIGNS STABLE. WILL CONTINUE TO MONITOR.
[2020-07-03 05:16] LABS: BASOPHILS ABSOLUTE AUTO 0.05 K/mm3 (0.00-0.23); BASOPHILS PERCENT AUTO 1 % (0-2); EOSINOPHILS PERCENT AUTO 3 % (0-6); Hematocrit 39.2 % (33.0-51.0); Hemoglobin 12.6 g/dL (11.5-16.0); IMMATURE GRAN ABSOLUTE AUTO 0.06 K/mm3 (0.00-0.10); IMMATURE GRAN PERCENT AUTO 1 % (0-1); LYMPHOCYTES ABSOLUTE AUTO 2.36 K/mm3 (0.84-5.20); LYMPHOCYTES PERCENT AUTO 31 % (21-46); MONOCYTES ABSOLUTE AUTO 0.83 K/mm3 (0.16-1.47); MONOCYTES PERCENT AUTO 11 % (4-13); Mean Corpuscular HGB 30.7 pg (26.0-34.0); Mean Corpuscular HGB Conc 32.1 g/dL (31.5-36.5); Mean Corpuscular Volume 96 fL (80-100); Mean Platelet Volume 12.1 fL (9.1-12.4); NEUTROPHILS ABSOLUTE AUTO 4.07 K/mm3 (1.96-9.15); NEUTROPHILS PERCENT AUTO 54 % (41-73); Platelet Count 242 K/mm3 (150-400); RDW Coefficient Variation 13.2 % (11.7-14.2); RDW Standard Deviation 46.9 fL (35.1-46.3); White Blood Cell Count 7.57 K/mm3 (4.00-11.30)
--- NOTE | 2020-07-03 16:28 | NUR ---
Shift Summary Pleasantly confused, cooperative with brief changes and meds. Denies pain, nausea, vomiting, diarrhea. Appetite is fair today. Continues with hallucinations. No acute changes. WCTM.
--- NOTE | 2020-07-04 05:48 | NUR ---
SHIFT SUMMARY PATIENT ALERT AND ORIENTED TO SELF ONLY. HAS BEEN PLEASANT OVERNIGHT AND SLEPT WELL. NO COMPLAINTS OF PAIN. BED IN LOWEST POSITION WITH WHEELS LOCKED AND ALARM ON. CALL LIGHT WITHIN REACH. REPORT GIVEN TO ONCOMING RN.
[2020-07-04 15:53] LABS: Influenza A, PCR NEGATIVE (NEGATIVE); Influenza B, PCR NEGATIVE (NEGATIVE); Resp Syncytial Virus, PCR NEGATIVE (NEGATIVE); SARS-Cov-2 (COVID-19) PCR, MMC NEGATIVE (NEGATIVE)
--- NOTE | 2020-07-04 16:15 | NUR ---
PT NOT IMPULSIVE, IS MORE STABLE ON HER FEET. REMOVED FROM [facility] MONITORING
--- NOTE | 2020-07-04 18:09 | NUR ---
PT CONFUSED WITH AUDIO AND VISUAL HALLUCINATIONS, ALERT, ORIENTED TO SELF ONLY. SHE HAS BEEN COOPERATIVE WITH CARE TODAY, EATING WELL. COVID TEST DONE TODAY AND RESULTS ARE NEGATIVE. NO ACUTE CHANGES NOTED THIS SHIFT, WILL CONTINUE TO MONITOR AND REPORT TO ONCOMING RN.
--- NOTE | 2020-07-05 05:31 | NUR ---
SHIFT SUMMARY PATIENT ALERT AND ORIENTED TO SELF. PATIENT WAS HAPPY, PLEASANT, AND COOPORATIVE ALL SHIFT. SHE CONTINUES TO TALK INCOHERENTLY TO HERSELF AND BEINGS THAT AREN'T IN THE ROOM. SLEPT WELL OVERNIGHT. BED IN LOWEST POSITION WITH WHEELS LOCKED AND ALARM ON. CALL LIGHT WITHIN REACH. REPORT GIVEN TO ONCOMING RN.
--- NOTE | 2020-07-05 18:36 | NUR ---
PT ALERT AND ORIENTED TO SELF ONLY. PLEASANT AND COOPERATIVE WITH CARE, HAPPY AND SINGING OFF AND ON. RESPONDS TO QUESTIONS AND COMMENTS WITH NONSENSICAL SPEECH. VISUAL AND AUDITORY HALLUCINATIIONS. HAVES CONVERSATIONS WITH PEOPLE NOT IN THE ROOM. CALL PERRIN IN REACH, BED ALARM ARMED. WILL CONTINUE TO MONITOR AND REPORT TO ONCOMING RN.
--- NOTE | 2020-07-06 04:09 | NUR ---
SHIFT SUMMARY: AAO TO SELF. USES CALL LIGHT TO MAKE NEEDS KNOWN. SPEAKING IN BROAD ASSOCIATIONS. DOES NOT ANSWER QUESTIONS APPROPRIATELY. FREQUENTLY TALKS TO HERSELF AND TO UNSEEN OTHERS IN HER ROOM. PLEASANT AND COOPERATIVE W/ CARES. MOODS ARE LABILE. PT FREQUENTLY JOKES AND LAUGHS BUT WILL BECOME TEARFUL QUICKLY AND THEN RETURN TO SMILING AND LAUGHING. REMAINED IN BED ALL NIGHT. INCONTINENT. SLEEPING INTERMITTENTLY. NO ACUTE CHANGES OVERNIGHT.
--- NOTE | 2020-07-06 16:33 | NUR ---
SHIFT SUMMARY- PT DENIES ANY COMPLAINTS T/O THE DAY. PT CONTINUES TO TALK TO SELF IN ROOM, PT OCCASIONALLY HAS OUTBURSTS AND YELLING IN ROOM AND ON THE PHONE. PT COOPERATIVE WITH CARE AT TIMES, AT OTHER TIMES PT REFUSING CARE OR MEDICATIONS BUT DOES EVENTUALLY AGREE, REFUSED TO GET OUT OF BED. DELUSIONAL. LS CLEAR, ON RA. HRR. PT INCONT OF URINE AND STOOL. NO OTHER ACUTE CHANGES THIS SHIFT, PT CONTINUES TO AWAIT INPATIENT PSYCH.
--- NOTE | 2020-07-07 04:57 | NUR ---
SHIFT SUMMARY: VSS. AFEB. AAOX1. PLEASANT AND COOPERATIVE W/ OCCASIONAL LABILE MOODS- LAUGHING AND CRYING. SOMEWHAT REDIRECTABLE. SPEAKS USING BROAD ASSOCIATIONS. TALKING FREQUENTLY TO HALLUCINATIONS. HAS REMAINED IN BED THROUGH THE NIGHT. NO ATTEMPTS TO GET UP INDEPENDENTLY. USES CALL BUTTON FOR STAFF ASSISTANCE. FORGETFUL. NO ACUTE OVERNIGHT EVENTS.
--- NOTE | 2020-07-07 16:27 | NUR ---
SHIFT SUMMARY- PT CONTINUES TO TALK INCOHOLERENTLY TO SELF IN ROOM, PT WITH DELUSIONAL THOUGHTS AND DOES NOT ANSWER QUESTIONS APROPRIATELY. PT MUCH MORE PLEASANT AND COOPERATIVE WITH CARE TODAY. PT DENIES ANY COMPLAINTS. LS CLEAR, ON RA. HRR. INCONT OF URINE AND STOOL. PT AWAITING INPATIENT PSYCH WHEN BED AVAILABLE.
--- NOTE | 2020-07-07 17:11 | NUR ---
EVELYN CALLED FOR AN UPDATE AND TO SEE IF PT WAS STILL IN NEED FOR A INPT PSYCH BED, SHE REPORTED THEY HAVE NOT RECEIVED ANYTHING FROM THE AND WILL NEED AN UPDATE SENT TOMORROW.
--- NOTE | 2020-07-08 04:13 | NUR ---
SHIFT SUMMARY: VSS. AFEB. 02 94% ON RA. A/O TO SELF. ABLE TO COMMUNICATE NEEDS BUT SPEECH IS MOSTLY IN BROAD ASSOCIATIONS WHEN IN CONVERSATION. PT YELLING AT VISUAL HALLUCINATIONS, AT ONE POINT SCREAMING "GET OUT OF HERE!". WILL YELL RESPONSES OUT TO OTHER PT'S WHEN SHE HEARS THEM. REDIRECTS WELL. PLEASANT AND COOPERATIVE W/ CARES. INCONTINENT. REMAINED IN BED ALL NIGHT. NO ACUTE CHANGES OVERNIGHT.
--- NOTE | 2020-07-08 16:46 | NUR ---
alert and orintated to self and location at times, enjoys talking to self and will incoporate conversations she hears either on tv or in the padilla, sometimes they will agrivate her but she usually can be talked down, call from, placement call made today but they were concerned about her incontenence and inability to fully care for herself, call light in reach, no IV, rm air bed in low position, will continue to monitor and treat until share bsr with noc nurse and pt
--- NOTE | 2020-07-09 05:34 | NUR ---
SHIFT SUMMARY ALERT, ABLE TO MAKE NEEDS KNOWN. HOLDS CONVERSATIONS WITH SELF. HAS VISUAL HALLUCIANTIONS AT TIMES; NONE NOTED THIS NIGHT. COOPERATIVE WITH CARE. CALLS AND ANSWERS QUESTIONS APPROPRIATELY. NO C/O PAIN/DISCOMFORT. REMAINS INCONTINENT, IN ATTENDS /c ROUTINE CHECKS. POWDER APPLIED TO GROIN. APPEARED TO REST MUCH OF THE NIGHT. NO ACUTE CHANGES NOTED. VSS/AFEBRILE. BED IN LOWEST POSITION; ALARM ON. CALL LIGHT AND BELONGINGS WITHIN REACH. CONTINUES TO AWAIT PLACEMENT. REPORT TO ONCOMING RN.
--- NOTE | 2020-07-09 16:26 | NUR ---
NO ACUTE CHANGES. PT REMAINS PLEASANT AND SWEET WITH STAFF. SHE CONTINUES TO HAVE HALLUCINATIONS AND WILL TALK TO UNSEEN PEOPLE. SHE IS NONVIOLENT AND REDIRECTABLE WHEN NEEDED. PT ABLE TO FEED SELF AND HAS MOMENTS OF CONTINENCE. CALL LIGHT WITHIN REACH.
--- NOTE | 2020-07-09 19:10 | NUR ---
ASSUMED CARE RECEIVED REPORT FROM HUY DOBSON. PT LYING IN BED WATCHING TV, IN NO ACUTE DISTRESS. NO ACUTE NEEDS ASSESSED AT THIS TIME. CALL LIGHT, POSSESSIONS IN REACH, BED IN LOW POSITION. CONTINUE TO MONITOR.
--- NOTE | 2020-07-10 04:21 | NUR ---
SECOND LANGUAGE TUTOR SUMMARY PT ASLEEP, NO ACUTE DISTRESS NOTED. COOPERATIVE WITH CARES THROUGH MUCH OF THE NIGHT, TOOK ALL HS MEDS WITHOUT DIFFICULTY. A&O TO SELF, PLEASANT. CALLS APPROPRIATELY. PT NOTED TO CONTINUOUSLY CONVERSE WITH SELF, OTHER PEOPLE NOT IN THE ROOM WHILE AWAKE. VS REVIEWED, WNL. NO ACUTE CHANGES IN CONDITION OVERNIGHT. CONTINUES TO AWAIT PLACEMENT. DENIES PAIN OR NEEDS. CALL LIGHT, POSSESSIONS IN REACH, BED IN LOW POSITION WITH ALARMS ON. CONTINUE TO MONITOR, REPORT OFF TO DAY RN.
--- NOTE | 2020-07-10 13:25 | NUR ---
SPOKE WITH DAUGHTER . FAMILY WANTS HER UP IN THE [facility] IN [place]. THE CHILDREN LIVE THERE AND ACCORDING TO TYLER THE PATIENT IS FAMILAR WITH THE UNIT. FAMILY FEELS LOBITO WOULD DO BEST BEING CLOSE TO HER CHILDREN. PT HAS BEEN UP TODAY, SHOWERED WITH MINIMAL ASSISTANCE, AND TOLD THIS NURSE WHEN SHE NEEDED TO HAVE A BM. PT IS A SBA WITH AMBULATION. SHE HAS BEEN PLEASANT AND COOPERATIVE ALL SHIFT.
--- NOTE | 2020-07-10 16:07 | NUR ---
PT HAS BEEN AMBULTING TO THE RESTROOM ALL SHIFT. SHE HAS BEEN CONTINENT SINCE THIS MORNING. PT WAS ABLE TO WALK TO THE SHOWER WITH SBA AND GOT IN WITH NO ASSISTANCE. PT HAS BEEN ABLE TO TELL STAFF EACH TIME SHE HAD TO GO TO THE RESTROOM. WITH CONTINUED ENCOURAGEMENT AND REMINDERS PT SHOULD BE ABLE TO CONTINUE IN THIS DIRECTION OF CARE. SHE HAS BEEN UP IN THE CHAIR SINCE BREAKFAST AND SAYS SHE ENJOYS IT. PT HAS BEEN VERY PLEASANT AND COOPERATIVE WITH CARES WITH NO OUTBURST OR NEGATIVE BEHAVIOR. PT IS SHOWING INTEREST IN HER CARE AND RECOVERY.
--- NOTE | 2020-07-10 21:51 | NUR ---
ASSUMPTION OF CARE. LOBITO IS PLEASANTLY CONFUSED, LOVE TO TALK TO SELF IN THE ROOM, IS IN A VERY GOOD MOOD SMILING AND FOLLOWING DIRECTIONS. DENIES NEED TO GO TO THE BATHROOM. TOOK MEDS WITH NO PROBLEMS. ATE SOME PUDDING WELL. ASSESSMENT BENIGN. DOES NOT WANT TO GET BACK TO BED SHE IS COMFORTABLE IN HER CHAIR. WILL CONTINUE TO MONITOR. CALL LIGHT IS IN REACH, CHAIR ALARM IS ON.
[2020-07-11 04:46] LABS: BASOPHILS ABSOLUTE AUTO 0.06 K/mm3 (0.00-0.23); BASOPHILS PERCENT AUTO 1 % (0-2); EOSINOPHILS ABSOLUTE AUTO 0.25 K/mm3 (0.00-0.68); EOSINOPHILS PERCENT AUTO 3 % (0-6); Hematocrit 39.1 % (33.0-51.0); Hemoglobin 12.6 g/dL (11.5-16.0); IMMATURE GRAN ABSOLUTE AUTO 0.11 K/mm3 (0.00-0.10); IMMATURE GRAN PERCENT AUTO 1 % (0-1); LYMPHOCYTES ABSOLUTE AUTO 1.94 K/mm3 (0.84-5.20); LYMPHOCYTES PERCENT AUTO 20 % (21-46); MONOCYTES ABSOLUTE AUTO 1.07 K/mm3 (0.16-1.47); MONOCYTES PERCENT AUTO 11 % (4-13); Mean Corpuscular HGB 30.7 pg (26.0-34.0); Mean Corpuscular HGB Conc 32.2 g/dL (31.5-36.5); Mean Corpuscular Volume 95 fL (80-100); Mean Platelet Volume 11.6 fL (9.1-12.4); NEUTROPHILS ABSOLUTE AUTO 6.32 K/mm3 (1.96-9.15); NEUTROPHILS PERCENT AUTO 65 % (41-73); Platelet Count 206 K/mm3 (150-400); RDW Standard Deviation 45.5 fL (35.1-46.3); Red Blood Cell Count 4.11 M/mm3 (3.80-5.20); White Blood Cell Count 9.75 K/mm3 (4.00-11.30)
--- NOTE | 2020-07-11 04:50 | NUR ---
SHIFT SUMMARY: AOX1, VISUAL AND AUDITORY HULLUCINATIONS BUT HAS BEEN FOLLOWING DIRECTIONS, USING THE CALL LIGHT, PLEASANT AND COOPERATIVE. NO BEHAVORIAL OUTBURST THIS SHIFT. ABLE TO STAND AND WALK TO BATHROOM, HAS BEEN CONTIENT/INCONTIENT TONIGHT. ONLY HAD 1 ACCIDENT WHILE SLEEPING. VS HAVE BEEN WNL, AFEBRILE, NO PAIN. BED ALARM/ CHAIR ALARM, BUT EVENTUALLY SHE LAID DOWN ON THE COUCH TO SLEEP. WAS OUTSIDE THE DOOR THE ENTIRE TIME. CALL LIGHT HAS BEEN IN REACH.
--- NOTE | 2020-07-11 14:28 | NUR ---
REPORT GIVEN LATE ENTRY FOR 1330: REPORT CALLED TO NURSE GERMAIN AT [facility]. NO FURTHER QUESTIONS REQUIRED AT THIS TIME.
--- NOTE | 2020-07-11 16:51 | NUR ---
DISCHARGE PT DISCHARGED WITH SECURE TRANSPORT TO GO TO [facility]. PT SENT WITH HER BELONGINGS. JEWELRY LOCKED UP WITH SECURITY GIVEN BACK TO PT AND PLACED WITH HER BELONINGS. WATCH FROM L[employer]OX ALSO PLACED WITH PT BELONGINGS AND SENT WITH PT. NO CHANGES IN ASSESSMENT PRIOR TO DC. REPORT GIVEN TO HUY GERMAIN AT [facility]. PT CELL PHONE LEFT BEHIND AFTER PT LEFT THIS FACILITY. CELL PHONE & RETAIL PRESENTATION SPECIALIST PLACED IN BAG WITH PT NAME. LENKA, PT SISTER CONTACTED TO COME CUSTOMER SERVICE SPECIALIST THE PHONE WITHIN ONE WEEK IF POSSIBLE. LENKA STATES SHE WILL COME IN THE NEXT COUPLE OF DAYS.
== END 2020-07-11 16:29 | DRG 871 ==
LOC: ER 16:03 → MEDS 20:52
PROVIDERS: Internal Medicine; Pharmacist; Physician Assistant; Psychiatry & Neurology Psychiatry; ADMIT Internal Medicine
DX: A41.59 Other Gram-negative sepsis (principal); U07.1 COVID-19; G92 Toxic encephalopathy; J12.82 Pneumonia due to coronavirus disease 2019; N39.0 Urinary tract infection, site not specified; M62.82 Rhabdomyolysis; E87.0 Hyperosmolality and hypernatremia; K21.9 Gastro-esophageal reflux disease without esophagitis; F41.1 Generalized anxiety disorder; F31.9 Bipolar disorder, unspecified; Z99.81 Dependence on supplemental oxygen; E86.0 Dehydration; B96.4 Proteus (mirabilis) (morganii) as the cause of diseases classified elsewhere; K59.09 Other constipation; R44.1 Visual hallucinations
CPT/HCPCS: 0241U; 36415; 71045; 80048; 80053; 80164; 81001; 82550; 82553; 83605; 85025; 87077; 87086; 87186; 93005; 93010; 96361; 96374; 97110; 97162; 97166; 97530; 97535; 99285-25; A9270; G0480; J0696; J1650; J7030; P9612

== ENCOUNTER 2021-09-12 16:41 | Emergency (ER) | payer OTHER ==
[~2021-09-12] VITALS: Ht 167.6 cm; Wt 90.7 kg
[~2021-09-12 16:41] MED LIST changes: +ALBU90OI INH; +LOPE2C PO; +PRED20 PO
[2021-09-12 19:09] LABS: Influenza A, PCR NEGATIVE (NEGATIVE); Influenza B, PCR NEGATIVE (NEGATIVE); Resp Syncytial Virus, PCR NEGATIVE (NEGATIVE); SARS-Cov-2 (COVID-19) PCR, MMC NEGATIVE (NEGATIVE)
== END 2021-09-12 18:42 | disposition home or self-care (01) ==
LOC: ER 16:41
PROVIDERS: Physician Assistant
DX: J98.8 Other specified respiratory disorders (principal); B97.89 Other viral agents as the cause of diseases classified elsewhere; E78.5 Hyperlipidemia, unspecified; K21.9 Gastro-esophageal reflux disease without esophagitis; F41.9 Anxiety disorder, unspecified; Z88.5 Allergy status to narcotic agent; Z88.8 Allergy status to other drugs, medicaments and biological substances; Z79.899 Other long term (current) drug therapy; Z86.711 Personal history of pulmonary embolism; Z86.718 Personal history of other venous thrombosis and embolism; Z20.822 Contact with and (suspected) exposure to COVID-19
CPT/HCPCS: 0241U; 71046

== ENCOUNTER → 2021-12-25 | Outpatient (CLI) | payer OTHER | END | disposition home or self-care (01) | LOC: LAB 15:15 → LAB SHORT 15:15 | DX: R82.90 Unspecified abnormal findings in urine (principal) | CPT/HCPCS: 87086 ==

== ENCOUNTER 2022-09-29 10:15 | Emergency (ER) | payer OTHER ==
[~2022-09-29] VITALS: Ht 167.6 cm; Wt 90.7 kg
[2022-09-29 11:37] LABS: BASOPHILS ABSOLUTE AUTO 0.03 K/mm3 (0.00-0.23); BASOPHILS PERCENT AUTO 0 % (0-2); EOSINOPHILS ABSOLUTE AUTO 0.11 K/mm3 (0.00-0.68); EOSINOPHILS PERCENT AUTO 2 % (0-6); Hematocrit 43.3 % (33.0-51.0); IMMATURE GRAN ABSOLUTE AUTO 0.02 K/mm3 (0.00-0.10); IMMATURE GRAN PERCENT AUTO 0 % (0-1); LYMPHOCYTES ABSOLUTE AUTO 1.27 K/mm3 (0.84-5.20); LYMPHOCYTES PERCENT AUTO 17 % (21-46); MONOCYTES ABSOLUTE AUTO 0.71 K/mm3 (0.16-1.47); MONOCYTES PERCENT AUTO 10 % (4-13); Mean Corpuscular HGB 31.3 pg (26.0-34.0); Mean Corpuscular HGB Conc 32.3 g/dL (31.5-36.5); Mean Corpuscular Volume 97 fL (80-100); Mean Platelet Volume 11.2 fL (9.1-12.4); NEUTROPHILS ABSOLUTE AUTO 5.18 K/mm3 (1.96-9.15); NEUTROPHILS PERCENT AUTO 71 % (41-73); Platelet Count 186 K/mm3 (150-400); RDW Coefficient Variation 12.5 % (11.7-14.2); RDW Standard Deviation 44.8 fL (35.1-46.3); Red Blood Cell Count 4.47 M/mm3 (3.80-5.20); White Blood Cell Count 7.32 K/mm3 (4.00-11.30)
[2022-09-29 11:59] LABS: Albumin, Blood 3.2 g/dL (3.4-5.0); Albumin/Globulin Ratio 0.9 (0.8-1.8); Bilirubin, Total 0.2 mg/dL (0.1-1.0); Bun/Creatinine Ratio 28.4 (12.0-20.0); Calcium, Blood 8.5 mg/dL (8.5-10.1); Creatinine, Blood 0.63 mg/dL (0.40-1.00); Globulin, Blood 3.5 g/dL (2.2-4.0); Potassium, Blood 3.7 mmol/L (3.5-5.5); Total Protein, Blood 6.7 g/dL (6.4-8.2)
[2022-09-29 12:48] LABS: Source, Urine Clean Catch
[2022-09-29 12:51] LABS: Appearance, Urine Clear (Clear); Bilirubin, Urine Neg (Neg); Blood, Urine Neg (Neg); Color, Urine Yellow (P-Yellow); Glucose Qualitative, Urine Neg (Neg); Ketones, Urine Neg (Neg); Leukocyte Esterase, Urine Neg (Neg); Nitrite, Urine Neg (Neg); Protein, Urine 1+ (Neg); Specific Gravity, Urine 1.005 (1.003-1.022); Urobilinogen, Urine NORM (Normal)
[2022-09-29] MEDS ORDERED: METOPROLOL SUCC25 MG PO (14:43)
[2022-09-29 15:53] VITALS: BP 154/90
== END 2022-09-29 16:05 | disposition home or self-care (01) ==
LOC: ER 10:15
PROVIDERS: Physician Assistant
DX: R10.32 Left lower quadrant pain (principal); Z86.711 Personal history of pulmonary embolism; Z86.718 Personal history of other venous thrombosis and embolism; Z88.8 Allergy status to other drugs, medicaments and biological substances; Z88.5 Allergy status to narcotic agent
CPT/HCPCS: 74177; 80053; 83690; 85025; 96374-59; 96375; 99284-25; J1885; J2765; Q9967

== ENCOUNTER 2022-10-06 09:21 | Emergency (ER) | payer OTHER ==
[~2022-10-06] VITALS: Ht 170.2 cm; Wt 72.6 kg
[~2022-10-06 09:21] MED LIST changes: +METOPROLOL SUCC25 MG PO
[2022-10-06 10:53] LABS: BASOPHILS ABSOLUTE AUTO 0.03 K/mm3 (0.00-0.23); BASOPHILS PERCENT AUTO 0 % (0-2); EOSINOPHILS ABSOLUTE AUTO 0.04 K/mm3 (0.00-0.68); EOSINOPHILS PERCENT AUTO 0 % (0-6); Hematocrit 36.1 % (33.0-51.0); Hemoglobin 11.6 g/dL (11.5-16.0); IMMATURE GRAN ABSOLUTE AUTO 0.13 K/mm3 (0.00-0.10); IMMATURE GRAN PERCENT AUTO 1 % (0-1); LYMPHOCYTES PERCENT AUTO 6 % (21-46); MONOCYTES ABSOLUTE AUTO 1.82 K/mm3 (0.16-1.47); MONOCYTES PERCENT AUTO 15 % (4-13); Mean Corpuscular HGB 30.7 pg (26.0-34.0); Mean Corpuscular HGB Conc 32.1 g/dL (31.5-36.5); Mean Corpuscular Volume 96 fL (80-100); Mean Platelet Volume 10.2 fL (9.1-12.4); NEUTROPHILS ABSOLUTE AUTO 9.11 K/mm3 (1.96-9.15); NEUTROPHILS PERCENT AUTO 77 % (41-73); Platelet Count 265 K/mm3 (150-400); RDW Coefficient Variation 12.9 % (11.7-14.2); RDW Standard Deviation 45.6 fL (35.1-46.3); Red Blood Cell Count 3.78 M/mm3 (3.80-5.20); White Blood Cell Count 11.83 K/mm3 (4.00-11.30)
[2022-10-06 11:08] LABS: Albumin, Blood 2.3 g/dL (3.4-5.0); Albumin/Globulin Ratio 0.5 (0.8-1.8); Bilirubin, Total 0.5 mg/dL (0.1-1.0); Bun/Creatinine Ratio 20.8 (12.0-20.0); Calcium, Blood 8.9 mg/dL (8.5-10.1); Creatinine, Blood 0.62 mg/dL (0.40-1.00); Globulin, Blood 4.6 g/dL (2.2-4.0); Potassium, Blood 3.3 mmol/L (3.5-5.5); Total Protein, Blood 6.9 g/dL (6.4-8.2)
[2022-10-06] MEDS ORDERED: Almacone Liqui355 ML PO (14:38)
[2022-10-06] MEDS ORDERED: FAMO20 PO (14:38)
[2022-10-06] MEDS ORDERED: DOC250 PO (14:38)
[2022-10-06] MEDS ORDERED: ONDA4ODT MM (14:39)
[2022-10-06 15:00] VITALS: BP 133/74
== END 2022-10-06 15:01 | disposition home or self-care (01) ==
LOC: ER 09:21
PROVIDERS: Student in an Organized Health Care Education/Training Program
DX: R10.13 Epigastric pain (principal); R63.0 Anorexia; R11.0 Nausea; R06.02 Shortness of breath; R74.8 Abnormal levels of other serum enzymes; K76.89 Other specified diseases of liver; E87.6 Hypokalemia; Z68.25 Body mass index [BMI] 25.0-25.9, adult; Z86.16 Personal history of COVID-19; Z88.8 Allergy status to other drugs, medicaments and biological substances; Z88.5 Allergy status to narcotic agent; Z86.718 Personal history of other venous thrombosis and embolism; Z86.711 Personal history of pulmonary embolism; Z87.891 Personal history of nicotine dependence
CPT/HCPCS: 71046; 71260; 76705; 80053; 83690; 85025; 85379; A9270; J1885; Q9967

== ENCOUNTER 2022-10-12 12:00 | Inpatient (IN) | payer OTHER ==
[~2022-10-12] VITALS: Ht 170.2 cm; Wt 88.5 kg
[~2022-10-12 12:00] MED LIST changes: +Almacone Liqui355 ML PO; +DOC250 PO; +FAMO20 PO; +ONDA4ODT MM
[2022-10-12 14:55] LABS: BASOPHILS ABSOLUTE AUTO 0.06 K/mm3 (0.00-0.23); BASOPHILS PERCENT AUTO 0 % (0-2); EOSINOPHILS ABSOLUTE AUTO 0.01 K/mm3 (0.00-0.68); EOSINOPHILS PERCENT AUTO 0 % (0-6); Hematocrit 32.5 % (33.0-51.0); Hemoglobin 10.6 g/dL (11.5-16.0); IMMATURE GRAN ABSOLUTE AUTO 0.73 K/mm3 (0.00-0.10); IMMATURE GRAN PERCENT AUTO 4 % (0-1); LYMPHOCYTES ABSOLUTE AUTO 1.21 K/mm3 (0.84-5.20); LYMPHOCYTES PERCENT AUTO 7 % (21-46); MONOCYTES ABSOLUTE AUTO 2.58 K/mm3 (0.16-1.47); MONOCYTES PERCENT AUTO 16 % (4-13); Mean Corpuscular HGB 30.6 pg (26.0-34.0); Mean Corpuscular HGB Conc 32.6 g/dL (31.5-36.5); Mean Corpuscular Volume 94 fL (80-100); Mean Platelet Volume 9.3 fL (9.1-12.4); NEUTROPHILS ABSOLUTE AUTO 11.94 K/mm3 (1.96-9.15); NEUTROPHILS PERCENT AUTO 72 % (41-73); Platelet Count 331 K/mm3 (150-400); RDW Coefficient Variation 13.8 % (11.7-14.2); RDW Standard Deviation 47.6 fL (35.1-46.3); Red Blood Cell Count 3.46 M/mm3 (3.80-5.20); White Blood Cell Count 16.53 K/mm3 (4.00-11.30)
[2022-10-12 15:10] LABS: Albumin/Globulin Ratio 0.4 (0.8-1.8); Bilirubin, Total 0.5 mg/dL (0.1-1.0); Bun/Creatinine Ratio 22.3 (12.0-20.0); Calcium, Blood 8.5 mg/dL (8.5-10.1); Creatinine, Blood 0.67 mg/dL (0.40-1.00); Globulin, Blood 4.8 g/dL (2.2-4.0); Potassium, Blood 3.3 mmol/L (3.5-5.5); Total Protein, Blood 6.8 g/dL (6.4-8.2)
[2022-10-12 16:28] LABS: Influenza A, PCR NEGATIVE (NEGATIVE); Influenza B, PCR NEGATIVE (NEGATIVE); Resp Syncytial Virus, PCR NEGATIVE (NEGATIVE); SARS-Cov-2 (COVID-19) PCR, MMC NEGATIVE (NEGATIVE)
[2022-10-12 16:56] LABS: Source, Urine Straight Cath
[2022-10-12 16:59] LABS: Appearance, Urine Turbid (Clear); Blood, Urine 2+ (Neg); Color, Urine Yellow (P-Yellow); Glucose Qualitative, Urine 1+ (Neg); Ketones, Urine 1+ (Neg); Leukocyte Esterase, Urine 1+ (Neg); Nitrite, Urine Pos (Neg); Protein, Urine 3+ (Neg); Urobilinogen, Urine 3+ (Normal)
[2022-10-12 17:11] LABS: Bilirubin, Urine 2+ (Neg)
[2022-10-12 17:13] LABS: Amorphous Heavy (0-Heavy); Mucus Light (0-Heavy)
[2022-10-12 17:14] LABS: Bacteria Many /hpf; Squamous Epithelial Cells Few /hpf (Few)
[2022-10-12 17:21] LABS: Source, Urine Straight Cath
[2022-10-12 17:24] LABS: Appearance, Urine Clear (Clear); Bilirubin, Urine Neg (Neg); Blood, Urine 1+ (Neg); Color, Urine Amber (P-Yellow); Glucose Qualitative, Urine Neg (Neg); Ketones, Urine 2+ (Neg); Leukocyte Esterase, Urine Neg (Neg); Nitrite, Urine Neg (Neg); Protein, Urine 2+ (Neg); Urobilinogen, Urine 2+ (Normal)
[2022-10-12 17:36] LABS: White Blood Cells, Urine 0-2 /hpf (0-5)
[2022-10-12 17:37] LABS: Bacteria Rare /hpf; Squamous Epithelial Cells Not Seen /hpf (Few); Transitional Epithelial Cells Rare /hpf (0-Rare)
--- NOTE | 2022-10-13 01:18 | NUR ---
ADMIT NOTE GOT REPORT FROM HUY LAWRENCE IN THE ED AT 8744. PT ADMITTED TO ROOM 324 AT 2315. PT HAS HX OF SCHIZOPHRENIA. PT ADMITTED FOR BENIGN LIVER CYST AND A UTI. PT IS FULL CODE. VSS. PT TO BE NPO AFTER MIDNIGHT PER ADMITTING PHYSICIAN.
[2022-10-13 04:44] VITALS: BP 147/87
[2022-10-13 05:07] LABS: Hemoglobin 10.7 g/dL (11.5-16.0); Mean Corpuscular HGB 30.6 pg (26.0-34.0); Mean Corpuscular HGB Conc 32.4 g/dL (31.5-36.5); Mean Corpuscular Volume 94 fL (80-100); Mean Platelet Volume 9.4 fL (9.1-12.4); Platelet Count 380 K/mm3 (150-400); RDW Coefficient Variation 13.8 % (11.7-14.2); RDW Standard Deviation 47.8 fL (35.1-46.3); White Blood Cell Count 14.72 K/mm3 (4.00-11.30)
[2022-10-13 05:45] LABS: BAND PERCENT MAN 4 % (0-8); BASOPHILS PERCENT MAN 0 % (0-2); EOSINOPHILS PERCENT MAN 0 % (0-6); LYMPHOCYTES ABSOLUTE MAN 1.47 K/mm3 (0.84-5.20); LYMPHOCYTES PERCENT MAN 10 % (21-46); MONOCYTES ABSOLUTE MAN 1.91 K/mm3 (0.16-1.47); MONOCYTES PERCENT MAN 13 % (4-13); NEUTROPHILS ABSOLUTE MAN 11.33 K/mm3 (1.96-9.15); SEG NEUTROPHILS PERCENT MAN 73 % (41-73); TOTAL CELLS COUNTED 100
[2022-10-13 05:50] LABS: Albumin, Blood 1.9 g/dL (3.4-5.0); Albumin/Globulin Ratio 0.4 (0.8-1.8); Bilirubin, Total 0.5 mg/dL (0.1-1.0); Bun/Creatinine Ratio 18.6 (12.0-20.0); Calcium, Blood 8.6 mg/dL (8.5-10.1); Creatinine, Blood 0.7 mg/dL (0.40-1.00); Globulin, Blood 4.8 g/dL (2.2-4.0); Potassium, Blood 3.5 mmol/L (3.5-5.5); Total Protein, Blood 6.7 g/dL (6.4-8.2)
--- NOTE | 2022-10-13 06:19 | NUR ---
SHIFT SUMMARY PT STANDBY ASSIST. BED ALARM IS ON, PT IS NOT ALWAYS STEADY ON HER FEET. PT SLEPT OFF AND ON MUCH OF THE NIGHT. PT ABLE TO AMBULATE TO THE RESTROOM WITH MINIMAL HELP.
[2022-10-13 07:46] VITALS: BP 140/73
[2022-10-13 09:43] VITALS: BP 130/67
--- NOTE | 2022-10-13 10:51 | NUR ---
CALLED DR ARREOLA- PT HAD AN EPISODE OF YELLOW BROWN LIQUID STOOL THIS MORNING, INCONTINENT. PT HAS REMAINED NPO WITH SOME ICE CHIPS PROVIDED BY NIGHT RN. NAPROXEN HELD D/T NPO STATUS. MD AWARE, NO NEW DIET ORDER CURRENTLY. UNSURE OF THE PLAN AT THIS TIME. PT VSS AT THIS TIME.
[2022-10-13 11:24] VITALS: BP 133/63
--- NOTE | 2022-10-13 11:50 | NUR ---
CALLED DR ARREOLA- PT HAD A LOW FEVER (100.1) ON LAST VITALS REMOVED EXTRA BLANKETS. VITALS RECHECK SHOWED NORMAL TEMP BUT RESP RATE WAS ELEVATED TO 28 AND O2 SATS WERE LOW AT 89%. PLACED ON 2L VIA NC. VITALS RECHECKED AFTER PT WAS ON O2 FOR A BIT AND SATS WERE UP TO 98% RESP RATE STILL ELEVATED AT 24 AND HER TEMP HAD RETURNED NOW AT 100.4. CALLED DR ARREOLA D/T THE NEW REQUIREMENT FOR O2 AND THE LOW GRADE FEVER. PT NOT ON ANY ABX AND SHE IS STILL NPO BUT NOT ON IVF. AWARE AND IS PLACING ORDERS FOR IVF AND ABX AT THIS TIME.
[2022-10-13 14:46] LABS: International Normalized Ratio 1.14; Prothrombin Time Results 11.9 Sec (9.7-11.5)
[2022-10-13 16:26] VITALS: BP 117/74
[2022-10-13 19:23] VITALS: BP 123/92
--- NOTE | 2022-10-13 19:34 | NUR ---
SHIFT SUMMARY- PT ALERT AND ORIENTED TO SELF. SHE HAS BEEN INCREASINGLY CONFUSED T/O THE SHIFT. BED ALARM IS SET FOR SAFETY. PT IS IMPULSIVE AND GROGGY AND NOT VERY STRONG ON HER FEET. PT IN BED, CALL LIGHT IN REACH, PT CURRENTLY NPO. IVF RUNNING. SHE PULLED OUT AN IV IN THE ED LEAVING A GOOD SIZED BRUISE ON HER LEFT ARM. BEDSIDE REPORT COMPLETED WITH NIGHT RN. NO CURRENT S&S OF DISTRESS. 1/2 OF THE PT HAIR WAS COMBED, SHE HAS A MAT IN THE BACK OF HER HEAD, BUT SHE STATED SHE WAS "COLLAPSING AND HAD TO LIE DOWN." NIGHT RN ARRIVED AT THAT TIME AND REPORT WAS COMPLETED. 1/2 OF BEDSIDE REPORT WAS COMPLETED OUT OF THE ROOM D/T PT CONFUSION AND FORGETFULLNESS, SHE WAS BECOMING ANXIOUS WITH ALL THE "NEW INFORMATION" SHE WAS HEARING. (IT WAS NOT NEW INFORMATION, SHE HAD FORGOTEN THAT SHE HAD BEEN INFORMED)
[2022-10-14] VITALS (9 sets, daily range): BP systolic 118–152; BP diastolic 56–77
--- NOTE | 2022-10-14 05:21 | NUR ---
SHIFT SUMMARY PT LAYING IN BED DURING BEDSIDE REPORT- NS INFUSING AT 75ML/HR- BED ALARM IN PLACE- PT REQUESTED SOMETHING FOR HEARTBURN - GAVE MAALOX FOR HEARTBURN AND HELD NAPROXEN D/T PT BEING NPO AND UNABLE TO EAT WITH MEDICATION- PT UP TO BSC SEVERAL TIMES T/O NIGHT, PT SET OFF BED ALARM BY SITTING UP TO SIDE OF BED- BED LOW POSITION, CALL LIGHT WITHIN REACH
[2022-10-14 08:12] LABS: Hematocrit 30.8 % (33.0-51.0); Hemoglobin 9.8 g/dL (11.5-16.0); Mean Corpuscular HGB 30.2 pg (26.0-34.0); Mean Corpuscular HGB Conc 31.8 g/dL (31.5-36.5); Mean Corpuscular Volume 95 fL (80-100); Mean Platelet Volume 9.2 fL (9.1-12.4); Platelet Count 356 K/mm3 (150-400); RDW Coefficient Variation 14.1 % (11.7-14.2); Red Blood Cell Count 3.24 M/mm3 (3.80-5.20); White Blood Cell Count 13.96 K/mm3 (4.00-11.30)
[2022-10-14 08:34] LABS: Albumin, Blood 1.6 g/dL (3.4-5.0); Albumin/Globulin Ratio 0.4 (0.8-1.8); Bilirubin, Total 0.4 mg/dL (0.1-1.0); Bun/Creatinine Ratio 24.5 (12.0-20.0); Calcium, Blood 7.8 mg/dL (8.5-10.1); Creatinine, Blood 0.57 mg/dL (0.40-1.00); Globulin, Blood 4.4 g/dL (2.2-4.0); Potassium, Blood 3.7 mmol/L (3.5-5.5)
[2022-10-14 13:09] LABS: Appearance, Body Fluid Turbid (Clear); Color, Body Fluid Brown (None-Yellow)
[2022-10-14 13:11] LABS: Automated BF RBC Count 1.151 M/mm3 (0-0); RBC Count, Body Fluid 1151000 /mm3 (0-0)
[2022-10-14 13:13] LABS: Automated BF WBC Count >200.000 K/mm3 (0-999)
[2022-10-14 13:14] LABS: Body Fluid WBC Count 200001 /mm3 (0-999)
[2022-10-14 13:19] LABS: Total Cell Count, Body Fluid 100
--- NOTE | 2022-10-14 14:03 | NUR ---
CALLED DR ARREOLA- PT POST PROCEDURE VITALS SHOW TEMP 101.4 PT O2 SATS DROPPED AGAIN AND SHE IS BEING PLACED BACK ON O2. AWARE. DR ARREOLA PLACING ORDERS FOR BLOOD CULTURES AND TYLENOL NOW.
[2022-10-14] MEDS ORDERED: QUET100 PO (16:42)
--- NOTE | 2022-10-14 19:46 | NUR ---
SHIFT SUMMARY PATIENT WITH LOW O2 SAT 87% ON ROOM AIR AND LAYING ON LEFT SIDE, SAT INCREASES TO 94% ON 1LPM. PATIENT HAD US GUIDED BIOPSY FOR HEPATIC CYST. DRAINING POST PROCEDURE OVER 1000ML BROWN/RED PRURULENT THICK MALODOROUS DRAINAGE. TEMP POST PROCEDURE 100.4. DR ARREOLA NOTIFIED AND TYLENOL GIVEN. DRAINAGE THINNING OUT AND DECREASING THIS EVENING.
--- NOTE | 2022-10-15 04:17 | NUR ---
SHIFT SUMMARY 66 YR F ADMITTED ON 10/13/22 FOR BENIGN LIVER CYST. FULL CODE. NO ACUTE CHANGES THIS SHIFT. PT HAS SLEPT FOR MOST OF THIS SHIFT BUT WHEN SHE IS AWAKE SHE APPEARS TO BE CONFUSED AND DISORIENTED. HEPATIC CYST DRAIN HAS COLLECTED VERY LITTLE DRAINAGE THIS SHIFT. THE DRAINAGE IS BROWN AND THIN.
[2022-10-15 04:37] VITALS: BP 132/70
[2022-10-15 04:56] LABS: Hematocrit 33.9 % (33.0-51.0); Hemoglobin 10.6 g/dL (11.5-16.0); Mean Corpuscular HGB 30.3 pg (26.0-34.0); Mean Corpuscular HGB Conc 31.3 g/dL (31.5-36.5); Mean Corpuscular Volume 97 fL (80-100); Mean Platelet Volume 9.1 fL (9.1-12.4); Platelet Count 426 K/mm3 (150-400); RDW Coefficient Variation 14.3 % (11.7-14.2); RDW Standard Deviation 51.2 fL (35.1-46.3); White Blood Cell Count 11.41 K/mm3 (4.00-11.30)
[2022-10-15 05:42] LABS: Percent Saturation 18.5 % (15.0-50.0)
[2022-10-15 05:43] LABS: Albumin, Blood 1.7 g/dL (3.4-5.0); Albumin/Globulin Ratio 0.4 (0.8-1.8); Bilirubin, Total 0.2 mg/dL (0.1-1.0); Bun/Creatinine Ratio 27.1 (12.0-20.0); Creatinine, Blood 0.55 mg/dL (0.40-1.00); Globulin, Blood 4.4 g/dL (2.2-4.0); Potassium, Blood 3.7 mmol/L (3.5-5.5); Total Protein, Blood 6.1 g/dL (6.4-8.2)
[2022-10-15 07:38] VITALS: BP 129/70
--- NOTE | 2022-10-15 13:50 | NUR ---
LOBITO C/O ABDOMINAL PAIN NOT RELIEVED BY MEDS IN EMAR. ABDOMEN DISTENDED, WARM, PATIENT STATES NO BM SINCE SHE HAS BEEN HERE AND NOT PASSING GAS. BOWEL TONES HYPOACTIVE. DR ARREOLA NOTIFIED AND WILL ORDER DULCOLAX
[2022-10-15 15:39] VITALS: BP 107/64
--- NOTE | 2022-10-15 17:20 | NUR ---
SHIFT SUMMARY PATIENT WITH SOME INTERMITTENT CONFUSION CONTINUING TODAY. DECREASED OUTPUT OF HEPATIC DRAIN OF 200ML TODAY, FLUID IS MORE WATERY BROWN TODAY. DUE TO CONSTIPATION, PATIENT MEDICATED WITH DULCOLAX AND HAD LARGE BM THIS AFTERNOON. SHE REPORTS RELIEF OF ABDOMINAL PAIN AND DISTENDED ABDOMEN SOFTER THAN PREVIOUSLY. BED ALARM ON AND IN LOW POSITION, CALL LIGHT IN REACH. WILL CONTINUE TO MONITOR.
[2022-10-15 19:23] VITALS: BP 125/98
--- NOTE | 2022-10-16 03:30 | NUR ---
SHIFT SUMMERY,PT HAD MULTIPLE LOOSE STOOLS AND HAD BEDDING CHANGE 2-3 TIMES. PT SEEMED VERY COMFUSED AT BEGINING OF SHIFT BUT LATTER IN SHIFT PT SEEMS TO BE MORE ORIENTED AND LESS CONFUSED. CALL LIGHT IN REACH BED ALARM ON.
[2022-10-16 03:58] VITALS: BP 121/54
[2022-10-16 05:52] LABS: Hematocrit 31.2 % (33.0-51.0); Hemoglobin 9.8 g/dL (11.5-16.0); Mean Corpuscular HGB 30.3 pg (26.0-34.0); Mean Corpuscular HGB Conc 31.4 g/dL (31.5-36.5); Mean Corpuscular Volume 97 fL (80-100); Mean Platelet Volume 9.1 fL (9.1-12.4); Platelet Count 452 K/mm3 (150-400); RDW Coefficient Variation 14.1 % (11.7-14.2); RDW Standard Deviation 50.6 fL (35.1-46.3); Red Blood Cell Count 3.23 M/mm3 (3.80-5.20); White Blood Cell Count 9.32 K/mm3 (4.00-11.30)
[2022-10-16 06:41] LABS: Albumin, Blood 1.5 g/dL (3.4-5.0); Albumin/Globulin Ratio 0.4 (0.8-1.8); Bilirubin, Total 0.3 mg/dL (0.1-1.0); Bun/Creatinine Ratio 25.6 (12.0-20.0); Calcium, Blood 7.9 mg/dL (8.5-10.1); Creatinine, Blood 0.55 mg/dL (0.40-1.00); Potassium, Blood 3.8 mmol/L (3.5-5.5); Total Protein, Blood 5.5 g/dL (6.4-8.2)
[2022-10-16 07:48] VITALS: BP 134/66
[2022-10-16 15:34] VITALS: BP 135/86
--- NOTE | 2022-10-16 19:17 | NUR ---
SHIFT SUMMARY PT ALERT AND CONFUSED. DRAINED 200ML. STANDBY ASSIST TO THE COMMODE. PT ABLE TO MAKE NEEDS KNOWN. NO ACUTE CHANGES THIS SHIFT.
[2022-10-16 20:17] VITALS: BP 126/68
[2022-10-17 02:55] VITALS: BP 136/63
--- NOTE | 2022-10-17 03:55 | NUR ---
SHIFT SUMMERY. PT RESTING IN BED, AND SEEMS TO BE SLEEPING BETTER TONIGHT THAN LAST NOC. PT IS STILL VERY CONFUSED, AND FORGETFULL. CALL LIGHT IN REACH.
[2022-10-17 05:28] LABS: Hematocrit 34.4 % (33.0-51.0); Hemoglobin 10.8 g/dL (11.5-16.0); Mean Corpuscular HGB 30.2 pg (26.0-34.0); Mean Corpuscular HGB Conc 31.4 g/dL (31.5-36.5); Mean Corpuscular Volume 96 fL (80-100); Mean Platelet Volume 8.8 fL (9.1-12.4); Platelet Count 495 K/mm3 (150-400); RDW Coefficient Variation 14.1 % (11.7-14.2); RDW Standard Deviation 49.9 fL (35.1-46.3); Red Blood Cell Count 3.58 M/mm3 (3.80-5.20); White Blood Cell Count 10.21 K/mm3 (4.00-11.30)
[2022-10-17 05:53] LABS: Albumin, Blood 1.8 g/dL (3.4-5.0); Albumin/Globulin Ratio 0.5 (0.8-1.8); Bilirubin, Total 0.2 mg/dL (0.1-1.0); Bun/Creatinine Ratio 18.9 (12.0-20.0); Calcium, Blood 8.1 mg/dL (8.5-10.1); Creatinine, Blood 0.58 mg/dL (0.40-1.00); Globulin, Blood 3.8 g/dL (2.2-4.0); Potassium, Blood 4.3 mmol/L (3.5-5.5); Total Protein, Blood 5.6 g/dL (6.4-8.2)
[2022-10-17 07:32] VITALS: BP 136/72
[2022-10-17 15:12] VITALS: BP 152/82
--- NOTE | 2022-10-17 17:10 | NUR ---
SHIFT SUMMARY PT A&OX4-SAYS ODD THINGS AT TIMES BUT IN PLEASENT MOOD T/O SHIFT. TOLERATING PO INTAKE WELL. IND. IN ROOM. VSS. IV ABX, PLAN FOR REMOVAL OF DRAIN ON WED. DRAINING SMALL AMOUNT OF LIGHT BROWN FLUID AT THIS TIME. CALL LIGHT W/IN REACH. TELE IN PLACE.
[2022-10-17 20:02] VITALS: BP 114/60
[2022-10-18 04:32] VITALS: BP 117/88
[2022-10-18 05:41] LABS: Hematocrit 37.9 % (33.0-51.0); Mean Corpuscular HGB 30.2 pg (26.0-34.0); Mean Corpuscular HGB Conc 31.7 g/dL (31.5-36.5); Mean Corpuscular Volume 95 fL (80-100); Platelet Count 573 K/mm3 (150-400); RDW Coefficient Variation 14.3 % (11.7-14.2); RDW Standard Deviation 50.2 fL (35.1-46.3); Red Blood Cell Count 3.98 M/mm3 (3.80-5.20); White Blood Cell Count 10.98 K/mm3 (4.00-11.30)
[2022-10-18 06:16] LABS: Albumin, Blood 2.2 g/dL (3.4-5.0); Albumin/Globulin Ratio 0.5 (0.8-1.8); Bilirubin, Total 0.3 mg/dL (0.1-1.0); Bun/Creatinine Ratio 13.7 (12.0-20.0); Calcium, Blood 8.7 mg/dL (8.5-10.1); Creatinine, Blood 0.66 mg/dL (0.40-1.00); Globulin, Blood 4.3 g/dL (2.2-4.0); Potassium, Blood 4.7 mmol/L (3.5-5.5); Total Protein, Blood 6.5 g/dL (6.4-8.2)
--- NOTE | 2022-10-18 07:19 | NUR ---
SKIN TOGGLER SUMMARY A/OX4. ABLE TO MAKE NEEDS KNOWN. PLEASANT AND COOPERATIVE. SOME FOREGETFULNESS. NO ACUTE EVENTS OVER NIGHT. 50MLS OUT OF DRAIN, MUCOUSY AND BROWN. TYLENOL FOR PAIN PER EMAR.
[2022-10-18 08:18] VITALS: BP 109/63
--- NOTE | 2022-10-18 09:00 | NUR ---
pt laying in bed awake a/ox4, pleasant and cooperative with care, follows commands well, lungs are clear t/o, resp even and unlabored, no cough noted, on r/a, hrr, has edema to b/l le, cap refill <3 sec, vs stable, afebrile, iv site to left hand is clear and patent, btx4, abd flat soft nontender, voids without diff, does have pullups on, and states she had a bit of incont stool in bed, skin c/w/d, vania pan, call light in reach.
[2022-10-18 15:48] VITALS: BP 106/77
--- NOTE | 2022-10-18 18:10 | NUR ---
pt had a shower today, good appetite, very talkative, drain tube site looks good, no s/s infection, no acute changes this shift, call light in reach.
[2022-10-18 20:00] VITALS: BP 132/74
[2022-10-19 04:48] VITALS: BP 120/65
[2022-10-19 07:16] VITALS: BP 124/71
--- NOTE | 2022-10-19 08:07 | NUR ---
SUMMARY PT CHILD LIKE. PLEASANT. ANTIBIOTICS INFUSING PER NEW IV SITE.
[2022-10-19 14:54] VITALS: BP 117/76
--- NOTE | 2022-10-19 18:17 | NUR ---
SHIFT SUMMARY: Pt remains A&O X3, pleasant throughout this shift. Ambulating in hallway multiple times independently. VSS, denies pain. Accordian drain intact with 10 ml purulent drainage this shift. Loose stool this am. Tolerating diet with epidode of nausea at lunch time that was relieved with PO Zofran. No further needs id or verbalized. Will continue to follow this shift.
[2022-10-19 19:47] VITALS: BP 133/80
[2022-10-20 03:23] VITALS: BP 107/63
--- NOTE | 2022-10-20 03:26 | NUR ---
RESIDENTIAL PROPERTY TAX APPRAISER SUMMARY VSS. ABD ACCORDIAN DRAIN IN USE, CLOUDY GREEN TINGED DRAINAGE. ABD DISCOMFORT - MEDICATED WITH ANALGESICS. MEDS EFFECTIVE. IV ANTIBIOTICS INFUSING PER JUL. UP AD CHOCO. HAS BEEN RESTING QUIETLY WITH FEW INTERRUPTIONS. CALL LIGHT IN REACH. WILL CONTINUE TO MONITOR
[2022-10-20 07:21] VITALS: BP 122/69
[2022-10-20] MEDS ORDERED: CEPH500 PO (11:35)
[2022-10-20] MEDS ORDERED: DIVA500ER PO (11:35)
--- NOTE | 2022-10-20 13:53 | NUR ---
PATIENT DISCHARGED TO HOME, DRIVING HERSELF. NO NARCOTIC PAIN MEDICATIONS GIVEN PRIOR TO D/C. URESIL DRAIN REMOVED BY DR. GARCIA AROUND 1145, PT TOLERATED WELL. VERBALIZED UNDERSTANDING OF D/C INSTRUCTIONS. OFF UNIT VIA W/C AT 1300. NO PERSONAL BELONGINGS LEFT BEHIND IN ROOM.
== END 2022-10-20 13:02 | disposition home or self-care (01) | DRG 442 ==
LOC: ER 12:00 → MEDS 12:01
PROVIDERS: Emergency Medicine; Family Medicine; Internal Medicine; ADMIT Student in an Organized Health Care Education/Training Program
PROC: 0F9230Z Drainage of Left Lobe Liver with Drainage Device, Percutaneous Approach (ICD-10-PCS; principal; 2022-10-15)
DX: K75.0 Abscess of liver (principal); E87.1 Hypo-osmolality and hyponatremia; D72.829 Elevated white blood cell count, unspecified; B96.1 Klebsiella pneumoniae [K. pneumoniae] as the cause of diseases classified elsewhere; Z20.822 Contact with and (suspected) exposure to COVID-19; K21.9 Gastro-esophageal reflux disease without esophagitis; E78.5 Hyperlipidemia, unspecified; E86.0 Dehydration; R82.90 Unspecified abnormal findings in urine; R80.9 Proteinuria, unspecified; R82.4 Acetonuria; K59.09 Other constipation; E87.8 Other disorders of electrolyte and fluid balance, not elsewhere classified; E87.6 Hypokalemia; E66.9 Obesity, unspecified; I10 Essential (primary) hypertension; D63.8 Anemia in other chronic diseases classified elsewhere; M19.90 Unspecified osteoarthritis, unspecified site; F20.9 Schizophrenia, unspecified; R50.9 Fever, unspecified; R00.0 Tachycardia, unspecified; F31.9 Bipolar disorder, unspecified; F41.9 Anxiety disorder, unspecified; Z87.891 Personal history of nicotine dependence; Z88.5 Allergy status to narcotic agent; Z68.30 Body mass index [BMI] 30.0-30.9, adult; Z88.8 Allergy status to other drugs, medicaments and biological substances; Z86.711 Personal history of pulmonary embolism; Z96.651 Presence of right artificial knee joint; Z90.89 Acquired absence of other organs; Z98.890 Other specified postprocedural states; Z87.42 Personal history of other diseases of the female genital tract; Z79.899 Other long term (current) drug therapy
CPT/HCPCS: 0241U; 36415; 49406; 71045; 71046; 74177; 80053; 81001; 82607; 82728; 82746; 83540; 83550; 83605; 83880; 84484; 85007; 85025; 85027; 85610; 85651; 87040; 87070; 87075; 87077; 87086; 87186; 87205; 89051; 93005; 93010; 96361; 96365-59; 96375; 96376; 99285-25; A9270; G0378; J0696; J7030; J7050; P9612; Q9967

== ENCOUNTER → 2024-07-04 | Outpatient (CLI) | payer MEDICARE, OTHER ==
[~2024-07-04] MED LIST changes: +CEPH500 PO; +QUET100 PO
[2024-07-05 13:09] LABS: Chlamydia Trachomatis Vaginal NOT DETECTED (NOT DETECT); Neisseria Gonorrhoea Vaginal NOT DETECTED (NOT DETECT)
== END | disposition home or self-care (01) ==
LOC: LAB 17:31 → LAB SHORT 17:31
PROVIDERS: Family Medicine
DX: N76.0 Acute vaginitis (principal); N39.0 Urinary tract infection, site not specified
CPT/HCPCS: 87070; 87205; 87491; 87591

== ENCOUNTER 2025-02-24 10:54 | Emergency (ER) | payer MEDICARE, OTHER ==
[~2025-02-24] VITALS: Ht 167.6 cm; Wt 124.7 kg
[2025-02-24 11:33] VITALS: BP 112/82
[2025-02-24] MEDS ORDERED: HYDROcodone 5-APAP 325 TAB PO ONE (11:40)
[2025-02-24 12:24] LABS: Alanine Aminotransfer (ALT/SGP 15.0 U/L (12-78); Albumin, Blood 3.7 g/dL (3.4-5.0); Albumin/Globulin Ratio 1.2 (0.8-1.8); Anion Gap 9.0 mmol/L (3-11); Aspartate Aminotrans (AST/SGOT 20.0 U/L (12-37); Bilirubin, Total 0.6 mg/dL (0.1-1.0); Blood Urea Nitrogen 24.0 mg/dL (8-24); CO2, Blood 26.0 mmol/L (21-32); Calcium, Blood 8.6 mg/dL (8.5-10.1); Chloride, Blood 107.0 mmol/L (98-108); Creatinine, Blood 0.69 mg/dL (0.40-1.00); Globulin, Blood 3.2 g/dL (2.2-4.0); Glucose, Blood 126.0 mg/dL (70-99); Potassium, Blood 4.1 mmol/L (3.5-5.5); Sodium, Blood 138.0 mmol/L (136-145); Total Protein, Blood 6.9 g/dL (6.4-8.2)
[2025-02-24 12:29] LABS: BASOPHILS ABSOLUTE AUTO 0.04 K/mm3 (0.00-0.23); BASOPHILS PERCENT AUTO 1 % (0-2); EOSINOPHILS ABSOLUTE AUTO 0.07 K/mm3 (0.00-0.68); EOSINOPHILS PERCENT AUTO 1 % (0-6); Hematocrit 44.9 % (33.0-51.0); Hemoglobin 14.9 g/dL (11.5-16.0); IMMATURE GRAN ABSOLUTE AUTO 0.06 K/mm3 (0.00-0.10); IMMATURE GRAN PERCENT AUTO 1 % (0-1); LYMPHOCYTES ABSOLUTE AUTO 1.40 K/mm3 (0.84-5.20); LYMPHOCYTES PERCENT AUTO 18 % (21-46); MONOCYTES ABSOLUTE AUTO 0.57 K/mm3 (0.16-1.47); MONOCYTES PERCENT AUTO 7 % (4-13); Mean Corpuscular HGB Conc 33.2 g/dL (31.5-36.5); Mean Corpuscular Volume 95 fL (80-100); NEUTROPHILS ABSOLUTE AUTO 5.86 K/mm3 (1.96-9.15); NEUTROPHILS PERCENT AUTO 73 % (41-73); NRBC ABSOLUTE 0.00 K/mm3 (0.00-0.02); NRBC Auto 0.0 /100 WBC (0.0-0.2); RDW Coefficient Variation 13.1 % (11.7-14.2); RDW Standard Deviation 46.1 fL (35.1-46.3)
[2025-02-24] MEDS ORDERED: TRAM50 PO (13:03)
== END 2025-02-24 13:20 | disposition home or self-care (01) ==
LOC: ER 10:54
PROVIDERS: Emergency Medicine
DX: M17.12 Unilateral primary osteoarthritis, left knee (principal); E78.5 Hyperlipidemia, unspecified; K21.9 Gastro-esophageal reflux disease without esophagitis; Z96.651 Presence of right artificial knee joint; Z87.891 Personal history of nicotine dependence; Z88.8 Allergy status to other drugs, medicaments and biological substances; Z88.5 Allergy status to narcotic agent; Z79.899 Other long term (current) drug therapy
CPT/HCPCS: 36415; 73562-LT; 80053; 85025; 85379; 93971; 99284-25; A9270

== ENCOUNTER 2025-03-01 12:03 | Emergency (ER) | payer MEDICARE, OTHER ==
[~2025-03-01] VITALS: Ht 167.6 cm; Wt 95.2 kg
[~2025-03-01 12:03] MED LIST changes: +TRAM50 PO
[2025-03-01 12:09] VITALS: BP 177/97
[2025-03-01] MEDS ORDERED: HYDROCODONE-AC1 EA10 PO (13:13)
[2025-03-01] MEDS ORDERED: IBUP800 PO (13:13)
== END 2025-03-01 13:23 | disposition home or self-care (01) ==
LOC: ER 12:03
DX: S83.8X2A Sprain of other specified parts of left knee, initial encounter (principal); Z87.891 Personal history of nicotine dependence; Z96.651 Presence of right artificial knee joint; W19.XXXA Unspecified fall, initial encounter
CPT/HCPCS: 99283